=== PATIENT | female | born 1980 | race Caucasian/White ===

== ENCOUNTER → 2018-01-20 01:51 | Outpatient (CLI) | payer MEDICAID, SELFPAY ==
--- NOTE | 2018-01-20 13:00 | DI.RPTCT_ITS ---
SYMPTOM/DIAGNOSIS: CHRONIC SINUSITIS, J32.[address]: The examination was carried out according to the usual protocol without contrast enhancement. The paranasal sinuses are normal. The nasal cavity is intact. SUMMARY: There is no evidence of sinus disease.
== END ==
PROVIDERS: PCP General Practice; Visit Provider General Practice
DX: J32.9 Chronic sinusitis, unspecified (principal)
CPT/HCPCS: 70486

== ENCOUNTER 2018-11-01 10:03 | Emergency (ER) | payer MEDICAID, SELFPAY ==
[2018-11-01 10:07] VITALS: BP 120/90; PULSE 98; RESP 18; TEMP 36.8; O2SAT 97
--- NOTE | 2018-11-01 10:22 | W.ED.GENAD ---
Discharge Plan Disposition Patient Disposition: HOME Condition: Stable Discharge Details Chief Complaint: GenMedical Clinical Impression: Cervical myofascial strain Primary Care Provider: Balaji Sheets ED Provider: Noy Sotelo Home Meds and New Rx's Prescriptions: New cyclobenzaprine 10 mg tablet 10 mg PO TID PRN (Reason: muscle spasm) Qty: 10 RF: 0 Continued sertraline 100 mg tablet 200 mg PO DAILY RF: 0 ibuprofen 800 mg tablet 800 mg PO TID PRNQty: 90 RF: 0 acyclovir 200 mg capsule 200 mg PO Q4HR Qty: 25 RF: 4 insulin lispro [Humalog U-100 Insulin] 100 UNIT/ML solution 0 - 12 units SQ AC RF: 0 insulin glargine [Lantus Solostar U-100 Insulin] 300 UNITS/3 ML insulin pen 50 units SQ HS RF: 0 Discharge Instructions Instructions: Cervical Strain (ED) Additional Instructions: Drink plenty of fluids and get plenty of rest. Alternate ice and heat to the affected area several times daily for 20 minutes at a time. Alternate Tylenol and Motrin as needed and directed for pain. Take the Flexeril as needed and directed for muscle spasm. Follow-up with your primary care doctor next week for reevaluation. Return to the emergency department any worsening or new concerning symptoms such as increased pain, weakness, headache, fever or any other concerns. Stand Alone Forms: Work Release Discharge Data Discharge Physician: Noy Sotelo Medical Decision Making 37-year-old female with a history of diabetes, GERD, migraine, depression who presents with right-sided neck pain worse with movement for the past 2 days. No known injury. Also complained of mild sore throat and chills since yesterday. Denies any headache, vomiting, chest pain, shortness of breath, abdominal pain. Vitals normal on arrival. Afebrile. Patient appears nontoxic. Normal ENT exam. Lungs clear to auscultation. No meningeal signs. No focal deficits. Neurovascularly intact. She has tenderness to palpation of her right lateral cervical region without evidence of trauma or rash. No tenderness to palpation of left lateral neck. Shortly after evaluation, patient requests a work note for today and tomorrow. As patient has not taken any medication for pain thus far, will give a dose of ibuprofen here. test negative. Appears consistent with cervical strain/sprain. She has no fever, no nuchal rigidity, and does not appear consistent with meningitis. Patient instructed to alternate ice and heat, Tylenol Motrin and will send home with prescription for Flexeril She is instructed to follow-up with primary care doctor for reevaluation and return here if worse. HPI General Mode of arrival: ambulatory. Date/Time Provider Initiated Documentation: 11/01/18 10:06. Limitations to Documentation: no limitations. Information obtained by: patient. HPI Narrative: Pt is a 37yo F with a history of diabetes, GERD, migraine, depression who presents with right-sided neck pain for the past 2 days. Patient states she feels like she may have pulled a muscle was sleeping and the pain became worse throughout the day. States it hurts more when she turns her head to the right. She denies any known injury. She states now she feels like she is getting pain referred to the left side but states it is still worse on the right side. She denies any known fever and states she has been eating and drinking normally. She has not taken any medication for pain or used ice or heat. She also states since yesterday she has had some mild sore throat and chills but otherwise denies any headache, vomiting, chest pain, shortness of breath, abdominal pain, extremity weakness or numbness. Related Data Home Medications Medication Instructions Recorded Confirmed insulin glargine [Lantus Solostar 50 units SQ HS 05/12/15 04/01/18 U-100 Insulin] insulin lispro [Humalog U-100 0 - 12 units SQ AC 05/12/15 04/01/18 Insulin] ibuprofen 800 mg tablet 800 mg PO TID PRN #90 04/01/18 04/01/18 sertraline 100 mg tablet 200 mg PO DAILY tab 04/01/18 04/01/18 acyclovir 200 mg capsule 200 mg PO Q4HR #25 tab-cap 04/25/18 cyclobenzaprine 10 mg PO TID PRN #10 tab 11/01/18 Previous Rx's Medication Instructions Recorded acyclovir 200 mg capsule 200 mg PO Q4HR #25 tab-cap 04/25/18 cyclobenzaprine 10 mg PO TID PRN #10 tab 11/01/18 Allergies Allergy/AdvReac Type Severity Reaction Status Date / Time amoxicillin Allergy Mild Hives Unverified 04/01/18 13:28 General Stated Complaint: GenMedical RADHA: 4 Review of Systems Review of Systems All systems reviewed & are unremarkable except as noted in HPI and below Constitutional Reports as per HPI, Denies chills and Denies fever(s) Eyes Denies blurry vision ENT Denies dizziness, Reports neck pain, Reports sore throat and Denies throat swelling Cardiovascular Denies chest pain and Denies dyspnea Respiratory Denies cough and Denies dyspnea Gastrointestinal Denies abdominal pain, Denies diarrhea and Denies vomiting Genitourinary Denies hematuria and Denies dysuria Musculoskeletal Denies back pain, Reports neck pain and Denies numbness Integumentary/Breasts Denies lesions and Denies rash Neurologic Denies dizziness, Denies focal weakness and Denies numbness Allergic/Immunologic Denies throat swelling [facility] Medical History Depression (Chronic) Diabetes (Chronic) GERD (gastroesophageal reflux disease) (Chronic) Migraine (Chronic) Surgical History Appendectomy section Cholecystectomy Diagnostic Laproscopy Family History Father Hypertension Non-Hodgkin lymphoma in remission Social History Smoking/Tobacco Use Status: Never Alcohol Intake: current Alcohol Intake frequency: a few times a month Drug use: Never Substance use type: marijuana Adopted: No Household members: children What type of physical activity do you participate in: normal ROM and activity Do you feel safe at home: Yes Do you feel safe in your relationship?: Yes Exam Const General: cooperative and healthy appearing Orientation: alert and awake HENMT Head: normal to inspection Ears: hearing grossly normal bilaterally, external ears normal and TM's normal bilaterally General nose exam: external nose normal Face and sinus: normal facial exam Mouth: oral mucosae normal Teeth and gingiva: dentition normal Throat: posterior oropharynx normal Eyes General: appearance normal, both eyes and all related structures Eyelids: eyelids normal Pupils: PERRL EOM: EOM intact bilaterally Neck Neck: normal visual inspection, no meningeal signs, trachea midline, supple and No submandibular swelling Lymphatic: no lymphadenopathy noted Neck images: 1. Tenderness to palpation of right lateral neck, worse near base of neck. Increased pain with right head rotation and right side bending and flexion. No tenderness to palpation of left lateral neck. Chest Chest: normal inspection of the chest Resp Effort & Inspection: normal respiratory effort and able to speak in complete sentences Auscultation: clear to auscultation bilaterally Cardio Rate: regular rate Rhythm: regular rhythm GI Inspection: normal to inspection Palpation: soft, not firm, no guarding, no hepatosplenomegaly, no masses and nontender Auscultation: normal bowel sounds Skin General skin exam: no rashes or lesions noted Neuro General: alert and awake Cognition: normal cognition Speech: speech normal Gait: normal gait Motor: muscle tone normal throughout, strength 5/5 throughout and other (Normal motor function radial/median/ulnar nerve) Sensory Exam: no sensory deficits noted Extrem General: normal to inspection, full ROM, normal capillary refill and other (B/l radial pulses intact. ) Psych Appearance: grossly normal Mental Status: mental status grossly normal Speech and Movement: speech and movement normal Affect: normal affect Thought Process: normal Course Vital Signs Temperature 98.2 F 11/01/18 10:07 Pulse 98 H 11/01/18 10:07 Respiratory Rate 18 11/01/18 10:07 Blood Pressure 120/90 11/01/18 10:07 Pulse Oximetry 97 11/01/18 10:07 Temperature 98.2 F 11/01/18 10:07 Pulse 98 H 11/01/18 10:07 Respiratory Rate 18 11/01/18 10:07 Respiratory Effort 11/01/18 10:19 Respiratory Depth Normal 11/01/18 10:19 Respiratory Pattern Normal 11/01/18 10:19 Blood Pressure 120/90 11/01/18 10:07 Pulse Oximetry 97 11/01/18 10:07 Oxygen Delivery Method Room Air 11/01/18 10:07 Oxygen Flow Rate 0 11/01/18 10:07 Pain Level 7 11/01/18 10:07
[2018-11-01] MEDS: Ibuprofen 600 MG TAB PO (10:43)
--- NOTE | 2018-11-01 10:46 | NUR.NOTE ---
patient exmained by MD, patient medicated per MD order . Nursing Note:
== END 2018-11-01 10:49 | disposition home or self-care (01) ==
PROVIDERS: Emergency Provider Physician Assistant; PCP Nurse Practitioner Family
DX: S16.1XXA Strain of muscle, fascia and tendon at neck level, initial encounter (principal); E11.9 Type 2 diabetes mellitus without complications; Z79.4 Long term (current) use of insulin
CPT/HCPCS: 99283

== ENCOUNTER 2018-11-10 10:05 | Emergency (ER) | payer MEDICAID, SELFPAY ==
[2018-11-10 10:07] VITALS: BP 148/101; PULSE 97; RESP 20; TEMP 36.5; O2SAT 95
[2018-11-10 10:11] VITALS: RESP 20
--- NOTE | 2018-11-10 10:30 | W.ED.GENAD ---
Discharge Plan Disposition Patient Disposition: HOME Condition: Fair Discharge Details Chief Complaint: GenMedical Clinical Impression: Diabetes mellitus, Poorly controlled diabetes mellitus Primary Care Provider: Balaji Sheets ED Provider: Vale Bergman Home Meds and New Rx's Prescriptions: Continued sertraline 100 mg tablet 200 mg PO DAILY RF: 0 ibuprofen 800 mg tablet 800 mg PO TID PRNQty: 90 RF: 0 acyclovir 200 mg capsule 200 mg PO Q4HR Qty: 25 RF: 4 Humalog U-100 Insulin 100 UNIT/ML solution 0 - 12 units SQ AC RF: 0 Lantus Solostar U-100 Insulin 300 UNITS/3 ML insulin pen 60 units SQ HS RF: 0 cyclobenzaprine 10 mg tablet 10 mg PO TID PRN (Reason: muscle spasm) Qty: 10 RF: 0 Discharge Instructions Instructions: Diabetes Insipidus (ED) Additional Instructions: Encourage hydration with water. You need to take your medications as prescribed and monitor your glucose as is been advised by primary care physician. Is elevation in your sugar is possibly what is driving your fatigue and feeling generally unwell. Please contact your primary care provider today to schedule follow-up within the next week for reevaluation. If you develop fevers, increased pain, inability stay hydrated or other new/worsening symptoms please seek care urgently once again. Tick and Lyme panel as well as A1C are still pending. Stand Alone Forms: Work Release Referrals: Balaji Sheets, HEAD NECK SURGEON [Primary Care Provider] - Discharge Data Discharge Date/Time-TO BE ENTERED AT DEPARTURE: 11/10/18 12:53 Medical Decision Making Patient presents with c/c generalized fatigue, myalgias and arthralgias. States that these come and go. no focal area of discomfort at this time. She is afebrile, hypertensive at 148/101. States she has been having increased thrist. Endorsing diffuse abdominal discomfort, no focal areas of tenderness. No findings to suggest surgical abdomen. She appears chronically ill with skin changes concerning for poorly controlled diabetes. Patient reports her glucose is typically around 200. Patient lives in [facility], also concidered tick born illness, will obtain these labs. W Review of labs concerning for glucose of 430. Patient has been elevated like this historically. I had discussed her diabetic control patient initially had been reporting that she was taking medications as prescribed. However, she is now reporting that she while she does take the Lantus at night, she does not use her Humalog as prescribed. States that she has bad diet I will not elaborate on this. Does not check her glucose on a daily basis. Had been taking her glucose is around 200. Advised that this is likely what is the source of her general malaise and feeling unwell. Patient will be given 10 units of NovoLog. Will contact primary care to establish follow-up. Have requested A1c which she will follow-up with primary care. Was unable to reach PCP. Plan for patient to call and f/u as soon as possible. We discussed her diabetes at length and reinforced the primary cares plan. Will call with any positive tick results. Given strict return precautions. All questions and concerns wereaddressed, she is in agreement wiht this plan. HPI General Mode of arrival: ambulatory. Date/Time Provider Initiated Documentation: 11/10/18 10:10. Limitations to Documentation: no limitations. Information obtained by: patient, family (Accompanied by patria?) and RN notes reviewed. HPI Narrative: Patient 37-year-old female, accompanied by her fianc?, with generalized vague complaints. She was here last week with a right cervical strain. Since then his pain has been improving although still mildly present. However, she is now endorsing general body aches. Reports that she had right hip pain for 20 minutes last night prior to bed which is very concerning patient. This is insidious onset. Did not take any analgesics or trying any attempts at resolving this. Denies any fevers but does endorse chills. She is having diffuse abdominal pain. No nausea or vomiting. No change in bowel habits. No change in urinary habits. No recent travel. No known exposure to ticks. Has not noted any rashes. Endorses generalized fatigue but no localized weakness. Related Data Home Medications Medication Instructions Recorded Confirmed Humalog U-100 Insulin 0 - 12 units SQ AC 05/12/15 11/10/18 Lantus Solostar U-100 Insulin 60 units SQ HS 05/12/15 11/10/18 ibuprofen 800 mg tablet 800 mg PO TID PRN #90 04/01/18 11/10/18 sertraline 100 mg tablet 200 mg PO DAILY tab 04/01/18 11/10/18 acyclovir 200 mg capsule 200 mg PO Q4HR #25 tab-cap 04/25/18 11/10/18 cyclobenzaprine 10 mg PO TID PRN #10 tab 11/01/18 11/10/18 Previous Rx's Medication Instructions Recorded acyclovir 200 mg capsule 200 mg PO Q4HR #25 tab-cap 04/25/18 cyclobenzaprine 10 mg PO TID PRN #10 tab 11/01/18 Allergies Allergy/AdvReac Type Severity Reaction Status Date / Time amoxicillin Allergy Mild Hives Unverified 11/10/18 10:10 General Stated Complaint: GenMedical RADHA: 4 Review of Systems Constitutional Reports as per HPI, Reports chills, Reports fatigue, Denies fever(s), Denies headache(s) and Denies poor appetite ENT Denies headache(s) Cardiovascular Reports as per HPI, Denies chest pain and Denies dyspnea Respiratory Reports as per HPI, Denies cough and Denies dyspnea Gastrointestinal Reports as per HPI, Reports abdominal pain, Denies melena, Denies change in bowel habits, Denies diarrhea, Denies nausea, Denies vomiting and Denies hematemesis Musculoskeletal Reports as per HPI, Denies back pain, Reports myalgias, Reports arthralgias, Denies joint swelling, Denies limited range of motion, Denies muscle cramps, Denies numbness, Denies radiating pain into limb and Denies stiffness Integumentary/Breasts Reports as per HPI and Denies rash Neurologic Reports as per HPI, Denies headache(s) and Denies numbness Endocrine Reports fatigue [facility] Medical History Depression (Chronic) Diabetes (Chronic) GERD (gastroesophageal reflux disease) (Chronic) Migraine (Chronic) Surgical History Appendectomy section Cholecystectomy Diagnostic Laproscopy Social History Smoking/Tobacco Use Status: Never Alcohol Intake: current Alcohol Intake frequency: a few times a month Drug use: Occasionally Substance use type: marijuana Adopted: No Household members: children What type of physical activity do you participate in: normal ROM and activity Do you feel safe at home: Yes Do you feel safe in your relationship?: Yes Exam Const General: cooperative, healthy appearing, comfortable, no acute distress and well developed Nutritional Appearance: well nourished and overweight Orientation: alert and awake [facility] Head: normal to inspection Mouth: mucous membranes dry (patient appears dry) Eyes General: appearance normal, both eyes and all related structures Visual Chang: normal visual hcang by confrontation Alignment and Position: alignment normal Periorbital: periorbital findings normal Conjunctivae: conjunctivae normal Sclera: sclerae normal Pupils: PERRL EOM: EOM intact bilaterally Neck Neck: normal visual inspection, full ROM, no lymphadenopathy and no meningeal signs Resp Effort & Inspection: normal respiratory effort, able to speak in complete sentences and no respiratory distress Auscultation: clear to auscultation bilaterally, no rales, no rhonchi and no wheezes Cardio Rate: regular rate Rhythm: regular rhythm Heart Sounds: S1 normal and S2 normal GI Inspection: obesity Palpation: soft, no hepatosplenomegaly, not firm, no guarding and nontender Auscultation: normal bowel sounds Back/Spine/Pelvis Back: no CVA tenderness Skin General skin exam: other (patient has velvety skin that is dry and darkened, acanthosis nigricans) Neuro General: alert and awake Cognition: normal cognition Speech: speech normal Gait: normal gait Extrem General: normal to inspection, full ROM, normal capillary refill, no pedal edema and no calf tenderness Psych Appearance: grossly normal and well kempt Mental Status: mental status grossly normal Speech and Movement: speech and movement normal Course Vital Signs Temperature 36.5 C 11/10/18 10:07 Pulse 97 H 11/10/18 10:07 Respiratory Rate 20 11/10/18 10:07 Blood Pressure 148/101 H 11/10/18 10:07 Pulse Oximetry 95 11/10/18 10:07 Temperature 36.5 C 11/10/18 10:07 Temperature Source Temporal Artery Scan 11/10/18 10:07 Pulse 97 H 11/10/18 10:07 Respiratory Rate 20 11/10/18 10:11 Respiratory Effort Non-Labored 11/10/18 10:11 Respiratory Depth Normal 11/10/18 10:11 Respiratory Pattern Normal 11/10/18 10:11 Blood Pressure 148/101 H 11/10/18 10:07 Blood Pressure Position Sitting 11/10/18 10:07 Pulse Oximetry 95 11/10/18 10:07 Oxygen Delivery Method Room Air 11/10/18 10:07 Oxygen Flow Rate 0 11/10/18 10:07 Pain Level 7 11/10/18 10:07
--- NOTE | 2018-11-10 10:36 | ED.GENADUL_ITS ---
Discharge Plan Disposition Patient Disposition: HOME Condition: Fair Discharge Details Chief Complaint: GenMedical Clinical Impression: Diabetes mellitus, Poorly controlled diabetes mellitus Primary Care Provider: Balaji Sheets ED Provider: Vale Bergman Home Meds and New Rx's Prescriptions: Continued sertraline 100 mg tablet 200 mg PO DAILY RF: 0 ibuprofen 800 mg tablet 800 mg PO TID PRNQty: 90 RF: 0 acyclovir 200 mg capsule 200 mg PO Q4HR Qty: 25 RF: 4 Humalog U-100 Insulin 100 UNIT/ML solution 0 - 12 units SQ AC RF: 0 Lantus Solostar U-100 Insulin 300 UNITS/3 ML insulin pen 60 units SQ HS RF: 0 cyclobenzaprine 10 mg tablet 10 mg PO TID PRN (Reason: muscle spasm) Qty: 10 RF: 0 Discharge Instructions Instructions: Diabetes Insipidus (ED) Additional Instructions: Encourage hydration with water. You need to take your medications as prescribed and monitor your glucose as is been advised by primary care physician. Is elevation in your sugar is possibly what is driving your fatigue and feeling generally unwell. Please contact your primary care provider today to schedule follow-up within the next week for reevaluation. If you develop fevers, increased pain, inability stay hydrated or other new/worsening symptoms please seek care urgently once again. Tick and Lyme panel as well as A1C are still pending. Stand Alone Forms: Work Release Referrals: Balaji Sheets, PERSONNEL OFFICER [Primary Care Provider] - Discharge Data Discharge Date/Time-TO BE ENTERED AT DEPARTURE: 11/10/18 12:53 Medical Decision Making Patient presents with c/c generalized fatigue, myalgias and arthralgias. States that these come and go. no focal area of discomfort at this time. She is afebrile, hypertensive at 148/101. States she has been having increased thrist. Endorsing diffuse abdominal discomfort, no focal areas of tenderness. No findings to suggest surgical abdomen. She appears chronically ill with skin changes concerning for poorly controlled diabetes. Patient reports her glucose is typically around 200. Patient lives in [facility], also concidered tick born illness, will obtain these labs. W Review of labs concerning for glucose of 430. Patient has been elevated like this historically. I had discussed her diabetic control patient initially had been reporting that she was taking medications as prescribed. However, she is now reporting that she while she does take the Lantus at night, she does not use her Humalog as prescribed. States that she has bad diet I will not elaborate on this. Does not check her glucose on a daily basis. Had been taking her glucose is around 200. Advised that this is likely what is the source of her general malaise and feeling unwell. Patient will be given 10 units of NovoLog. Will contact primary care to establish follow-up. Have requested A1c which she will follow-up with primary care. Was unable to reach PCP. Plan for patient to call and f/u as soon as possible. We discussed her diabetes at length and reinforced the primary cares plan. Will call with any positive tick results. Given strict return precautions. All questions and concerns wereaddressed, she is in agreement wiht this plan. HPI General Mode of arrival: ambulatory . Date/Time Provider Initiated Documentation: 11/10/18 10:10 . Limitations to Documentation: no limitations . Information obtained by: patient, family (Accompanied by patria?) and RN notes reviewed . HPI Narrative: Patient 37-year-old female, accompanied by her fianc?, with generalized vague complaints. She was here last week with a right cervical strain. Since then his pain has been improving although still mildly present. However, she is now endorsing general body aches. Reports that she had right hip pain for 20 minutes last night prior to bed which is very concerning patient. This is insidious onset. Did not take any analgesics or trying any attempts at resolving this. Denies any fevers but does endorse chills. She is having diffuse abdominal pain. No nausea or vomiting. No change in bowel habits. No change in urinary habits. No recent travel. No kno wn exposure to ticks. Has not noted any rashes. Endorses generalized fatigue but no localized weakness. Related Data Home Medications Medication Instructions Recorded Confirmed Humalog U-100 Insulin 0 - 12 units SQ AC 05/12/15 11/10/18 Lantus Solostar U-100 Insulin 60 units SQ HS 05/12/15 11/10/18 ibuprofen 800 mg tablet 800 mg PO TID PRN #90 04/01/18 11/10/18 sertraline 100 mg tablet 200 mg PO DAILY tab 04/01/18 11/10/18 acyclovir 200 mg capsule 200 mg PO Q4HR #25 tab-cap 04/25/18 11/10/18 cyclobenzaprine 10 mg PO TID PRN #10 tab 11/01/18 11/10/18 Previous Rx's Medication Instructions Recorded acyclovir 200 mg capsule 200 mg PO Q4HR #25 tab-cap 04/25/18 cyclobenzaprine 10 mg PO TID PRN #10 tab 11/01/18 Allergies Allergy/AdvReac Type Severity Reaction Status Date / Time amoxicillin Allergy Mild Hives Unverified 11/10/18 10:10 General Stated Complaint: GenMedical RADHA: 4 Review of Systems Constitutional Reports as per HPI, Reports chills, Reports fatigue, Denies fever(s), Denies headache(s) and Denies poor appetite ENT Denies headache(s) Cardiovascular Reports as per HPI, Denies chest pain and Denies dyspnea Respiratory Reports as per HPI, Denies cough and Denies dyspnea Gastrointestinal Reports as per HPI, Reports abdominal pain, Denies melena, Denies change in bowel habits, Denies diarrhea, Denies nausea, Denies vomiting and Denies hematemesis Musculoskeletal Reports as per HPI, Denies back pain, Reports myalgias, Reports arthralgias, Denies joint swelling, Denies limited range of motion, Denies muscle cramps, Denies numbness, Denies radiating pain into limb and Denies stiffness Integumentary/Breasts Reports as per HPI and Denies rash Neurologic Reports as per HPI, Denies headache(s) and Denies numbness Endocrine Reports fatigue [facility] Medical History Depression (Chronic) Diabetes (Chronic) GERD (gastroesophageal reflux disease) (Chronic) Migraine (Chronic) Surgical History Appendectomy section Cholecystectomy Diagnostic Laproscopy Social History Smoking/Tobacco Use Status: Never Alcohol Intake: current Alcohol Intake frequency: a few times a month Drug use: Occasionally Substance use type: marijuana Adopted: No Household members: children What type of physical activity do you participate in: normal ROM and activity Do you feel safe at home: Yes Do you feel safe in your relationship?: Yes Exam Const General: cooperative, healthy appearing, comfortable, no acute distress and well developed Nutritional Appearance: well nourished and overweight Orientation: alert and awake [facility] Head: normal to inspection Mouth: mucous membranes dry (patient appears dry) Eyes General: appearance normal, both eyes and all related structures Visual Chang: normal visual chang by confrontation Alignment and Position: alignment normal Periorbital: periorbital findings normal Conjunctivae: conjunctivae normal Sclera: sclerae normal Pupils: PERRL EOM: EOM intact bilaterally Neck Neck: normal visual inspection, full ROM, no lymphadenopathy and no meningeal signs Resp Effort & Inspection: normal respiratory effort, able to speak in complete sentences and no respiratory distress Auscultation: clear to auscultation bilaterally, no rales, no rhonchi and no wheezes Cardio Rate: regular rate Rhythm: regular rhythm Heart Sounds: S1 normal and S2 normal GI Inspection: obesity Palpation: soft, no hepatosplenomegaly, not firm, no guarding and nontender Auscultation: normal bowel sounds Back/Spine/Pelvis Back: no CVA tenderness Skin General skin exam: other (patient has velvety skin that is dry and darkened, acanthosis nigricans) Neuro General: alert and awake Cognition: normal cognition Speech: speech normal Gait: normal gait Extrem General: normal to inspection, full ROM, normal capillary refill, no pedal edema and no calf tenderness Psych Appearance: grossly normal and well kempt Mental Status: mental status grossly normal Speech and Movement: speech and movement normal Course Vital Signs Temperature 36.5 C 11/10/18 10:07 Pulse 97 H 11/10/18 10:07 Respiratory Rate 20 11/10/18 10:07 Blood Pressure 148/101 H 11/10/18 10:07 Pulse Oximetry 95 11/10/18 10:07 Temperature 36.5 C 11/10/18 10:07 Temperature Source Temporal Artery Scan 11/10/18 10:07 Pulse 97 H 11/10/18 10:07 Respiratory Rate 20 11/10/18 10:11 Respiratory Effort Non-Labored 11/10/18 10:11 Respiratory Depth Normal 11/10/18 10:11 Respiratory Pattern Normal 11/10/18 10:11 Blood Pressure 148/101 H 11/10/18 10:07 Blood Pressure Position Sitting 11/10/18 10:07 Pulse Oximetry 95 11/10/18 10:07 Oxygen Delivery Method Room Air 05/30/19 10:07 Oxygen Flow Rate 0 11/10/18 10:07 Pain Level 7 11/10/18 10:07
[2018-11-10 11:45] LABS: Abs Immature Grans 0.01 k/cumm (0.0-0.09); Absolute Basophil Count 0.02 k/cumm (0.0-0.2); Absolute Eosinophil Count 0.06 k/cumm (0.0-0.7); Absolute Lymphocyte Count 2.02 k/cumm (1.2-3.4); Absolute Monocyte Count 0.41 k/cumm (0.11-0.7); Absolute Neutrophil Count 3.58 k/cumm (1.2-6.7); Basophils % 0.3; HCT 43.3 % (36.0-46.0); HGB 15.2 g/dL (12.0-15.5); Immature Grans % 0.2; Lymphocytes % 33.1; Mean Corp. HGB Concentration 35.1 g/dL (32.0-36.0); Mean Corpuscular Hemoglobin 28.4 pg (27.0-33.0); Mean Corpuscular Volume 80.8 fL (80-95); Mean Platelet Volume 11.2 fL (8.0-11.0); Monocytes % 6.7; Neutrophils % 58.7; Platelet Count 168 x1000/uL (130-400); RBC 5.36 m/cumm (4.00-5.20); RBC Distribution Width 12.6 % (11.7-14.6)
[2018-11-10 12:10] LABS: ALT 28 U/L (12-78); AST 13 U/L (15-37); Albumin 3.3 g/dL (3.4-5.0); Alkaline Phosphatase 123 U/L (46-116); Anion Gap 8.5 mmol/L (3-11); BUN 8 mg/dL (7-18); Bilirubin, Total 0.6 mg/dL (0.2-1.0); CO2 26.5 mmol/L (21.0-32.0); CREATININE 0.84 mg/dL (0.55-1.02); Calcium 8.8 mg/dL (8.5-10.1); Chloride 98 mmol/L (98-107); Glucose 430 mg/dL (70-100); Magnesium 1.7 mg/dL (1.8-2.4); Potassium 4.1 mmol/L (3.5-5.1); Sodium 133 mmol/L (136-145); TSH (W/Ref FT4) 0.62 uIU/mL (0.358-3.74)
[2018-11-10 12:12] LABS: Troponin I < 0.02 ng/mL (0.00-0.06)
[2018-11-10 12:36] LABS: Hemoglobin A1C 11.3 % (4.5-6.2)
[2018-11-10] MEDS: Insulin Aspart 100 UNITS/ML UNIT 10 UNITS SC (12:36)
[2018-11-10 12:49] VITALS: BP 148/101; PULSE 97; RESP 20; TEMP 36.5; O2SAT 95
[2018-11-11 12:04] LABS: Lyme Ab w Rflx to Lyme Confirm Negative
[2018-11-12 16:40] LABS: Anaplasma phagocytophilum Negative (Negative); B. miyamotoi PCR Negative (Negative); Babesia divergens/MO-1 Negative (Negative); Babesia duncani Negative (Negative); Babesia microti Negative (Negative); Ehrlichia chaffeensis Negative (Negative); Ehrlichia ewingii/canis Negative (Negative); Ehrlichia muris eauclairensis Negative (Negative)
== END 2018-11-10 12:53 | disposition home or self-care (01) ==
PROVIDERS: Emergency Provider Physician Assistant; PCP Nurse Practitioner Family
DX: E11.9 Type 2 diabetes mellitus without complications (principal); Z79.4 Long term (current) use of insulin
CPT/HCPCS: 36415; 80053; 96372; 99284; 83036; 83735; 84443; 84484; 85025; 86618; 87798; J1815

== ENCOUNTER 2018-11-28 12:41 | Emergency (ER) | payer MEDICAID, SELFPAY ==
[2018-11-28 12:48] VITALS: BP 132/74; PULSE 79; RESP 16; TEMP 36.9; O2SAT 100
--- NOTE | 2018-11-28 13:01 | DI.CT_ITS ---
SYMPTOM/DIAGNOSIS: LT SIDED WEAKNESS, HEADACHE, DIZZINESS NONCONTRAST HEAD CT: Comparison is made with 02/09/16. No intracranial hemorrhage, mass or infarct is seen. The ventricles are normal in size. There is no evidence of skull fracture or sinus opacification. IMPRESSION: Negative head CT.
--- NOTE | 2018-11-28 13:13 | NUR.NOTE ---
IV PLACED LABS DRAWN URINE SAMPLE OBTAINED PT AMBULATORY TO BATHROOM STEADY Nursing Note:
[2018-11-28 13:18] LABS: HCT 39.8 % (36.0-46.0); HGB 13.7 g/dL (12.0-15.5); Lymphocytes % 27.7; Mean Corp. HGB Concentration 34.4 g/dL (32.0-36.0); Mean Corpuscular Hemoglobin 28.5 pg (27.0-33.0); Mean Corpuscular Volume 82.9 fL (80-95); Monocytes % 4.8; Neutrophils % 65.6; Platelet Count 189 x1000/uL (130-400); RBC Distribution Width 12.8 % (11.7-14.6); White Blood Cell Count 7.07 k/cumm (4.4-10.8)
[2018-11-28 13:19] LABS: Abs Immature Grans 0.05 k/cumm (0.0-0.09); Absolute Basophil Count 0.01 k/cumm (0.0-0.2); Absolute Eosinophil Count 0.08 k/cumm (0.0-0.7); Absolute Lymphocyte Count 1.96 k/cumm (1.2-3.4); Absolute Monocyte Count 0.34 k/cumm (0.11-0.7); Absolute Neutrophil Count 4.63 k/cumm (1.2-6.7); Basophils % 0.1; Eosinophils % 1.1; Immature Grans % 0.7
--- NOTE | 2018-11-28 13:21 | NUR.NOTE ---
FINGER STICK OBTAINED FOUND TO BE 373 Nursing Note:
[2018-11-28 13:23] LABS: Bilirubin Negative (Negative); Blood Negative (Negative); Clarity Clear; Glucose 500 mg/dL (Negative); Ketones Negative (Negative); Leukocyte Esterase Negative (Negative); Nitrite Negative (Negative); Specific Gravity 1.015 (1.005-1.025); Urobilinogen 0.2 EU/dL (Up TO 0.2); pH 5.5 (5-8)
[2018-11-28 13:40] LABS: ALT 26 U/L (12-78); AST 11 U/L (15-37); Albumin 2.9 g/dL (3.4-5.0); Alkaline Phosphatase 116 U/L (46-116); Anion Gap 12.5 mmol/L (3-11); BUN 8 mg/dL (7-18); Bilirubin, Total 0.4 mg/dL (0.2-1.0); CO2 23.5 mmol/L (21.0-32.0); CREATININE 0.97 mg/dL (0.55-1.02); Calcium 8.4 mg/dL (8.5-10.1); Chloride 103 mmol/L (98-107); Glucose 392 mg/dL (70-100); Magnesium 1.6 mg/dL (1.8-2.4); Potassium 3.8 mmol/L (3.5-5.1); Sodium 139 mmol/L (136-145); Total Protein 6.4 g/dL (6.4-8.2); Troponin I 0.02 ng/mL (0.00-0.06)
--- NOTE | 2018-11-28 13:41 | W.ED.GENAD ---
Discharge Plan Disposition Patient Disposition: HOME Condition: Stable Discharge Details Chief Complaint: GenMedical Clinical Impression: Diabetes mellitus Primary Care Provider: Balaji Sheets ED Provider: Vale Bergman Home Meds and New Rx's Prescriptions: Continued sertraline 100 mg tablet 200 mg PO DAILY RF: 0 ibuprofen 800 mg tablet 800 mg PO TID PRNQty: 90 RF: 0 acyclovir 200 mg capsule 200 mg PO Q4HR Qty: 25 RF: 4 Humalog U-100 Insulin 100 UNIT/ML solution 0 - 12 units SQ AC RF: 0 Lantus Solostar U-100 Insulin 300 UNITS/3 ML insulin pen 60 units SQ HS RF: 0 cyclobenzaprine 10 mg tablet 10 mg PO TID PRN (Reason: muscle spasm) Qty: 10 RF: 0 Discharge Instructions Instructions: Diabetic Retinopathy (ED), Diabetic Peripheral Neuropathy (ED) Additional Instructions: Encourage hydration. You need to follow the diabetic diet and diabetic medications as directed by your primary care as well as a medical educator. Please find your glucometer and check this as advised. Please follow-up with primary care next week for reevaluation. Monitor your symptoms are likely associated with your diabetes being so poorly controlled. This will continue to cause damage to your eyes, nerves, kidneys. If you develop fever/chills, inability stay hydrated or the new/worsening symptoms please seek care urgently once again Stand Alone Forms: Work Release Referrals: Balaji Sheets, PILOT INSTRUCTOR [Primary Care Provider] - Medical Decision Making Patient is a 38 year old female, hx of poorly controlled diabetes, presenting with persistant malaise, fatigue and new onset left sided heaviness. Left sided symptoms began while laying in bed last night at midnight. Patient was seen by myself on 11/10/18 with similar complaints, workup significant for glucose >400. This is typical for the patient. Thyroid, tick and lyme panel normal. she was subsequently evaluated by her PCP who also reinforced that she needs better diabetic management. Was evaluated by diabetic counselor. Patient continues to be noncompliant. Reprots she cut chips out of her diet, otherwise remains unchanged. She has not begun to use her glucometer, is only occasionally using her sliding scale. No recent trauma. No weakness, no change in bowel/bladder habits, no change in ambulator status or focal weakness. On exam, she appears obese. skin changes consistent with her hx of poorly controlled dm. Neuro exam is intact, no deficit noted. Consulted with Dr. Stark regarding the patients left sided heaviness. Advised that, without neurologic deficit, she would no persue further imaging such as CTA or MRI. Advised that this is likely from her elevated glucose, even if this is chronic. She is questioning if this could be associated with migraine vs. social as well but feels that htis is likely DM related. Will consult with PCP. Spoke with Patty Sultana NP, patients PCP. She agrees that her sxs are likely associated iwth her DM. I reinforced their recommendations with the patient. I offered to help her get a new glucometer as she reports, I have two but cant find them but she declines, offered meeting/event planner or diabetic counselor while here and she declines this as well. Her mag was slightly low at 1.6, was given replacement. She will f/u wtih PCP. We discussed, in depth, the fci affects of poorly controlled diabetes. Encouraged close f/u . All of her questions and concerns were addressed, she is in agreement with this plan. Work note given at patient request. HPI General Mode of arrival: ambulatory. Date/Time Provider Initiated Documentation: 11/28/18 13:01. Limitations to Documentation: no limitations. Information obtained by: patient and RN notes reviewed. History of Present Illness 38 year old F presents to the emergency department with the chief complaint of fatigue, left sided heaviness, described as moderate, Quality is described as aching, Patient started experiencing this hour(s) (13) and it has been constant. No relieving factors improve symptom(s), No exacerbating factors reported . Patient notes headaches (endorses mild DAIGLE), shortness of breath and weakness (generalized weakness and fatigue with acute left sided weakness); denies chest pain, cough, fever/chills, loss of appetite, nausea/vomiting and rash. Patient did receive the following treatments prior to arrival, none Related Data Home Medications Medication Instructions Recorded Confirmed Humalog U-100 Insulin 0 - 12 units SQ AC 05/12/15 11/10/18 Lantus Solostar U-100 Insulin 60 units SQ HS 05/12/15 11/10/18 ibuprofen 800 mg tablet 800 mg PO TID PRN #90 04/01/18 11/10/18 sertraline 100 mg tablet 200 mg PO DAILY tab 04/01/18 11/10/18 acyclovir 200 mg capsule 200 mg PO Q4HR #25 tab-cap 04/25/18 11/10/18 cyclobenzaprine 10 mg PO TID PRN #10 tab 11/01/18 11/10/18 Previous Rx's Medication Instructions Recorded acyclovir 200 mg capsule 200 mg PO Q4HR #25 tab-cap 04/25/18 cyclobenzaprine 10 mg PO TID PRN #10 tab 11/01/18 Allergies Allergy/AdvReac Type Severity Reaction Status Date / Time amoxicillin Allergy Mild Hives Unverified 11/10/18 10:10 General Stated Complaint: GenMedical RADHA: 2 Review of Systems Constitutional Reports as per HPI, Denies chills, Denies fever(s), Reports headache(s) (endorses mild DAIGLE, hx of migraines), Denies lethargy, Denies poor appetite and Reports weakness (feels left side is heavy) Eyes Reports change in vision (reports that they have been becoming more blurred over the past few months) and Denies loss of vision ENT Denies vertigo, Denies dizziness and Reports headache(s) (endorses mild DAIGLE, hx of migraines) Cardiovascular Reports as per HPI, Denies dyspnea and Denies dyspnea on exertion Respiratory Reports as per HPI, Denies chest congestion, Denies cough, Denies pain on inspiration, Denies pain with cough, Denies dyspnea, Denies dyspnea on exertion and Denies wheezing Gastrointestinal Reports as per HPI, Denies abdominal pain, Denies diarrhea, Denies nausea and Denies vomiting Genitourinary Reports system reviewed and no additional complaints, except as docu (denies chagne in urinary habits, has IUD in place) Musculoskeletal Reports as per HPI, Denies abnormal gait, Denies back pain, Denies numbness and Reports tingling (left side) Integumentary/Breasts Reports as per HPI and Denies rash Neurologic Reports as per HPI, Denies abnormal gait, Denies vertigo, Denies dizziness, Reports headache(s) (endorses mild DAIGLE, hx of migraines), Denies focal weakness, Denies loss of vision, Denies numbness, Denies radicular pain, Denies convulsions, Reports tingling (left side), Denies paresthesias and Reports weakness (feels left side is heavy) Allergic/Immunologic Denies wheezing [facility] Social History Smoking/Tobacco Use Status: Never Alcohol Intake: current Alcohol Intake frequency: a few times a month Drug use: Occasionally Substance use type: marijuana Adopted: No Household members: children What type of physical activity do you participate in: normal ROM and activity Do you feel safe at home: Yes Do you feel safe in your relationship?: Yes Exam Const General: cooperative, healthy appearing, comfortable, no acute distress and well developed Nutritional Appearance: well nourished and overweight Orientation: alert, awake and oriented x3 HENMT Head: normal to inspection Ears: hearing grossly normal bilaterally Mouth: moist mucous membranes Neck Neck: not normal to visual inspection (Acanthosis nigricans ), full ROM, no lymphadenopathy and no meningeal signs Chest Chest: normal inspection of the chest, normal palpation of entire chest wall and no crepitus Resp Effort & Inspection: normal respiratory effort, able to speak in complete sentences and no respiratory distress Auscultation: clear to auscultation bilaterally, no rales, no rhonchi and no wheezes Cardio Rate: regular rate Rhythm: regular rhythm Heart Sounds: S1 normal and S2 normal GI Inspection: normal to inspection, no edema and non-distended Palpation: soft, no hepatosplenomegaly, not firm, no guarding, not rigid and nontender Auscultation: normal bowel sounds Back/Spine/Pelvis Back: no CVA tenderness Thoracic/Lumbar Spine: thoracic and lumbar spine normal to inspection Skin General skin exam: no rashes or lesions noted Trauma: no lacerations or abrasions Neuro General: alert, awake, oriented x3, gait normal, tone normal, moves all extremities, normal light touch, pain and propioception, no meningeal signs and no focal motor deficits Cranial Nerves: CN's II-XI intact bilaterally Cognition: normal cognition Speech: speech normal Gait: normal gait Motor: muscle tone normal throughout, strength 5/5 throughout, no pronator drift, no movement abnormalities noted and no fasciculations Sensory Exam: no sensory deficits noted (sharp/dull testing normal in all extremities) DTR's: Rt Triceps: 2+, Lt Triceps: 2+, Rt Biceps: 2+, Lt Biceps: 2+, Rt Brachioradialis: 2+, Lt Brachioradialis: 2+, Rt Patellar: 2+, Lt Patellar: 2+, Rt Ankle: 2+ and Lt Ankle: 2+ Plantar Reflexes: Equivocal: bilateral Coordination: [id number] test normal and [id number] test normal Extrem General: normal to inspection, normal capillary refill, no pedal edema, no calf tenderness and normal gait Psych Appearance: grossly normal and well kempt Mental Status: mental status grossly normal Speech and Movement: speech and movement normal Course Vital Signs Temperature 36.9 C 11/28/18 12:48 Pulse 79 11/28/18 12:48 Respiratory Rate 16 11/28/18 12:48 Blood Pressure 132/74 11/28/18 12:48 Pulse Oximetry 100 11/28/18 12:48 Temperature 36.9 C 11/28/18 12:48 Pulse 79 11/28/18 12:48 Respiratory Rate 16 11/28/18 12:48 Respiratory Effort Non-Labored 11/28/18 13:02 Respiratory Depth Normal 11/28/18 13:02 Respiratory Pattern Normal 11/28/18 13:02 Blood Pressure 132/74 11/28/18 12:48 Blood Pressure Position Supine 11/28/18 12:48 Pulse Oximetry 100 11/28/18 12:48 Oxygen Delivery Method Room Air 11/28/18 12:48 Oxygen Flow Rate 0 11/28/18 12:48 Lab/Test Results Lab/Test Results: Laboratory Tests Range/Units 11/28/18 11/28/18 11/28/18 13:07 13:07 13:08 WBC (4.4-10.8) k/cumm 7.07 RBC (4.00-5.20) m/cumm 4.80 Hgb (12.0-15.5) g/dL 13.7 Hct (36.0-46.0) % 39.8 MCV (80-95) fL 82.9 MCH (27.0-33.0) pg 28.5 MCHC (32.0-36.0) g/dL 34.4 RDW (11.7-14.6) % 12.8 Plt Count (130-400) x1000/uL 189 MPV (8.0-11.0) fL 11.0 Immature Gran % 0.7 Neutrophils % 65.6 Lymphocytes % 27.7 Monocytes % 4.8 Eosinophils % 1.1 Basophils % 0.1 Absolute Neutrophils (1.2-6.7) k/cumm 4.63 Absolute Lymphocytes (1.2-3.4) k/cumm 1.96 Absolute Monocytes (0.11-0.7) k/cumm 0.34 Absolute Eosinophils (0.0-0.7) k/cumm 0.08 Absolute Basophils (0.0-0.2) k/cumm 0.01 Sodium (136-145) mmol/L 139 Potassium (3.5-5.1) mmol/L 3.8 Chloride (98-107) mmol/L 103 Carbon Dioxide (21.0-32.0) mmol/L 23.5 Anion Gap (3-11) mmol/L 12.5 H BUN (7-18) mg/dL 8 Creatinine (0.55-1.02) mg/dL 0.97 Estimated GFR/1.73 m2 (mL/min/1.73m2) >= 60.00 Glucose (70-100) mg/dL 392 H Calcium (8.5-10.1) mg/dL 8.4 L Magnesium (1.8-2.4) mg/dL 1.6 L Total Bilirubin (0.2-1.0) mg/dL 0.4 AST (15-37) U/L 11 L ALT (12-78) U/L 26 Alkaline Phosphatase (46-116) U/L 116 Troponin I (0.00-0.06) ng/mL 0.02 Total Protein (6.4-8.2) g/dL 6.4 Albumin (3.4-5.0) g/dL 2.9 L Urine Color (Yellow) Yellow Urine Clarity Clear Urine pH (5-8) 5.5 Ur Specific Anderson (1.005-1.025) 1.015 Urine Protein (Negative) mg/dL Negative Urine Ketones (Negative) mg/dL Negative Urine Blood (Negative) Negative Urine Nitrite (Negative) Negative Urine Bilirubin (Negative) Negative Urine Urobilinogen (Up TO 0.2) EU/dL 0.2 Ur Leukocyte Esterase (Negative) Negative Urine Glucose (Negative) mg/dL 500 H
--- NOTE | 2018-11-28 13:47 | NUR.NOTE ---
pt taken to ct by contact lens blocker and cutter Nursing Note:
--- NOTE | 2018-11-28 13:54 | NUR.NOTE ---
PT BACK IN ROOM FROM CT Nursing Note:
[2018-11-28 14:03] LABS: PTT Activated 21.6 sec (21.0-31.4); Prothrombin Time 9.6 sec (9.3-11.0)
[2018-11-28] MEDS: Magnesium Oxide 400 MG TAB PO (14:39)
[2018-11-28] MEDS: Normal Saline Flush 10 ML SYR IVP (14:40)
[2018-11-28] MEDS: Normal Saline 1,000 ML 150 ML IV (14:40)
--- NOTE | 2018-11-28 14:40 | NUR.NOTE ---
pt medicated as per mdo ivf infusing pt tolorating po intake Nursing Note:
[2018-11-28 14:56] VITALS: BP 128/93; PULSE 87; RESP 16; TEMP 36.5; O2SAT 99
== END 2018-11-28 15:06 | disposition home or self-care (01) ==
PROVIDERS: Emergency Provider Physician Assistant; PCP Nurse Practitioner Family
DX: E11.9 Type 2 diabetes mellitus without complications (principal)
CPT/HCPCS: 36415; 80053; 99284; 70450; 81003; 83735; 84484; 85025; 85610; 85730; J3490

== ENCOUNTER 2019-01-02 08:15 | Emergency (ER) | payer OTHER, MEDICAID, SELFPAY ==
[2019-01-02 08:19] VITALS: BP 120/77; PULSE 91; RESP 16; TEMP 36.6; O2SAT 97
--- NOTE | 2019-01-02 08:31 | W.ED.GENAD ---
Discharge Plan Disposition Patient Disposition: HOME Condition: Stable Discharge Details Chief Complaint: Orthopedic Clinical Impression: Bilateral knee pain Primary Care Provider: Balaji Sheets ED Provider: Raeann Iglesias Home Meds and New Rx's Prescriptions: Continued sertraline 100 mg tablet 200 mg PO DAILY RF: 0 ibuprofen 800 mg tablet 800 mg PO TID PRNQty: 90 RF: 0 acyclovir 200 mg capsule 200 mg PO Q4HR Qty: 25 RF: 4 insulin lispro [Humalog U-100 Insulin] 100 UNIT/ML solution 0 - 12 units SQ AC RF: 0 Lantus Solostar U-100 Insulin 300 UNITS/3 ML insulin pen 60 units SQ HS RF: 0 Discharge Instructions Instructions: Knee Pain (ED), Patellar Tendinitis (ED) Additional Instructions: Please return immediately to the emergency department if you develop any new or worsening symptoms or if you become otherwise concerned. It is extremely important that you call as soon as possible to make an appointment to be seen by her primary care doctor, and also by physical therapy as we discussed. Stand Alone Forms: Work Release Referrals: Balaji Sheets NP [Primary Care Provider] - Noe Ballard PT [PHYSICAL THERAPIST] - Discharge Data Discharge Date/Time-TO BE ENTERED AT DEPARTURE: 01/02/19 09:52 Medical Decision Making Omayra Wiggins is a 38-year-old woman with history of insulin dependent diabetes who presented to the emergency department with 1 month of gradually worsening right knee pain and 1 to 2 weeks of mild left knee pain, worse with bending knees/climbing stairs/kneeling. On exam patient is very well and nontoxic appearing. Tenderness over the patellar tendon worse at the tibial insertion. No knee effusion bilaterally, no erythema or overlying skin changes, no lower extremity edema, no posterior calf tenderness to palpation. Able to range knees fully. Concern for likely patellar tendinopathy. Exam/history is not consistent with fracture, septic arthritis or other infectious process, DVT. Plan for rest, ice, home meds that use, outpatient follow-up with PCP and with physical therapy. I offered screening x-rays, but patient refused at this time. I had a lengthy discussion with the patient regarding return to emergency department precautions, importance of outpatient follow-up, and home care. Patient verbalized understanding of the plan was amenable. All questions were answered. Patient was discharged home with clear plan for outpatient follow-up. Work note provided requesting the patient be allowed to sit at work as needed secondary to pain. Medical Records Medical records reviewed: Yes I reviewed the patient's medical records. HPI General Mode of arrival: ambulatory. Date/Time Provider Initiated Documentation: 01/02/19 08:31. Limitations to Documentation: no limitations. Information obtained by: patient, RN notes reviewed and old records reviewed. HPI Narrative: Omayra Wiggins is a 38-year-old woman with history of insulin-dependent diabetes presenting to the emergency department with knee pain. Patient reports that over the past month she has noted progressively worsening pain in her right knee. Pain seems worse with climbing stairs or kneeling. Patient reports that over the past week or so, she also has same pain but milder in her left knee as well. She has not had similar symptoms in the past. No trauma. No recent change in activity level, although she states that she has 3 children and works at [employer] where she is required to be on her feet all day. She denies fever, rash, shortness of breath, cough, swelling, vomiting, diarrhea, any other pain. Patient reports that she came in today for work note, as her pain is much improved with sitting which she has not been allowed to do at work. Has been eating and drinking as usual. No recent travel. Related Data Home Medications Medication Instructions Recorded Confirmed Lantus Solostar U-100 Insulin 60 units SQ HS 05/12/15 01/02/19 insulin lispro [Humalog U-100 0 - 12 units SQ AC 05/12/15 01/02/19 Insulin] ibuprofen 800 mg tablet 800 mg PO TID PRN #90 04/01/18 01/02/19 sertraline 100 mg tablet 200 mg PO DAILY tab 04/01/18 01/02/19 acyclovir 200 mg capsule 200 mg PO Q4HR #25 tab-cap 04/25/18 01/02/19 Previous Rx's Medication Instructions Recorded acyclovir 200 mg capsule 200 mg PO Q4HR #25 tab-cap 04/25/18 Allergies Allergy/AdvReac Type Severity Reaction Status Date / Time amoxicillin Allergy Mild Hives Unverified 11/10/18 10:10 General Stated Complaint: Orthopedic RADHA: 4 Review of Systems Review of Systems Constitutional: denies fevers Eyes: denies eye pain ENT: denies facial pain, dental pain, sore throat Cardiovascular: denies chest pain, edema Respiratory: denies SOB, cough GI: denies abdominal pain, vomiting, diarrhea : denies flank pain MSK: denies back pain, neck pain, myalgias, report knee pain Skin: denies rash Neuro: denies headaches, numbness, weakness [facility] Medical History Depression (Chronic) Diabetes (Chronic) GERD (gastroesophageal reflux disease) (Chronic) Migraine (Chronic) Social History Smoking/Tobacco Use Status: Never Alcohol Intake: current Alcohol Intake frequency: a few times a month Drug use: Occasionally Substance use type: marijuana Adopted: No Household members: children What type of physical activity do you participate in: normal ROM and activity Do you feel safe at home: Yes Do you feel safe in your relationship?: Yes Exam Narrative Exam Narrative: Constitutional: well and [id number], pleasant, conversing normally HENT: head atraumatic/normocephalic/normal inspection, mucous membranes moist Eyes: conjunctiva normal, sclera normal, pupils 3mm b/l Neck: no stridor, normal ROM, trachea midline Resp: normal work of breathing, LCTAB Cardio: normal rate, normal rhythm, no murmur appreciated Skin: warm, dry, normal color, no rash Neuro: alert, not altered, grossly non-focal, normal tone Ext: normal inspection b/l legs. No knee effusion b/l. right knee TTP focally over inferior patella, tibial tuberosity. No overlying skin changes. No other TTP of the knee. Normal motor/sensation. DP pulses intact and symmetric. Mild TTP same area left knee, no other abnormal findings. Full ROM b/l knees. No lower ext edema, no posterior calf tenderness b/l. Psych: normal mood, normal affect, normal behavior Course Vital Signs Temperature 36.6 C 01/02/19 08:19 Pulse 91 H 01/02/19 08:19 Respiratory Rate 16 01/02/19 08:19 Blood Pressure 120/77 01/02/19 08:19 Pulse Oximetry 97 01/02/19 08:19 Temperature 36.6 C 01/02/19 08:19 Temperature Source Skin 01/02/19 08:19 Pulse 91 H 01/02/19 08:19 Respiratory Rate 16 01/02/19 08:19 Respiratory Effort Non-Labored 01/02/19 08:19 Blood Pressure 120/77 01/02/19 08:19 Blood Pressure Position Supine 01/02/19 08:19 Pulse Oximetry 97 01/02/19 08:19 Oxygen Delivery Method Room Air 01/02/19 08:19 Oxygen Flow Rate 0 01/02/19 08:19 Pain Level 7 01/02/19 08:19
[2019-01-02 09:49] VITALS: BP 120/80; PULSE 71; RESP 16; O2SAT 96
== END 2019-01-02 09:52 | disposition home or self-care (01) ==
PROVIDERS: Emergency Provider Student in an Organized Health Care Education/Training Program; PCP Nurse Practitioner Family
DX: M25.561 Pain in right knee (principal); M25.562 Pain in left knee; E11.9 Type 2 diabetes mellitus without complications; Z79.4 Long term (current) use of insulin
CPT/HCPCS: 99282

== ENCOUNTER 2019-01-06 16:07 | Outpatient (REF) | payer MEDICAID, SELFPAY ==
[2019-01-06 20:24] LABS: Microalb ug/mg Crea 9.7 ug/mg Cr
== END 2019-01-06 16:27 ==
LOC: NCHCN 16:07
PROVIDERS: PCP Nurse Practitioner Family; Visit Provider Nurse Practitioner Family
DX: E11.9 Type 2 diabetes mellitus without complications (principal)
CPT/HCPCS: 82043; 82570

== ENCOUNTER 2019-05-10 11:09 | Outpatient (CLI) | payer OTHER, SELFPAY ==
--- NOTE | 2019-05-10 11:10 | DI.RAD_ITS ---
EXAM: XR KNEE RT 3V AP,LAT,BULMARO CLINICAL HISTORY: pain TECHNIQUE: AP and lateral views of the right knee and bilateral Merchant views were obtained. COMPARISON: No exams were available for comparison FINDINGS: No bony abnormality seen. There is mild bilateral lateral patellar subluxation, right greater than left.
== END 2019-05-10 11:29 ==
PROVIDERS: PCP Nurse Practitioner Family; Visit Provider Orthopaedic Surgery
DX: M25.561 Pain in right knee (principal); S83.011A Lateral subluxation of right patella, initial encounter
CPT/HCPCS: 73562

== ENCOUNTER 2020-03-13 19:37 | Outpatient (REF) | payer MEDICAID, SELFPAY ==
[2020-03-15 22:00] LABS: Patient Race White; SARS-CoV-2 RNA Undetected (Undetected); SARS-CoV-2 Specimen Source Nasal
== END 2020-03-13 19:57 ==
LOC: NCHCN 19:37
PROVIDERS: PCP Nurse Practitioner Family; Visit Provider Nurse Practitioner Family
DX: Z20.828 Contact with and (suspected) exposure to other viral communicable diseases (principal)
CPT/HCPCS: U0003

== ENCOUNTER 2020-06-13 11:41 | Outpatient (REF) | payer MEDICAID, SELFPAY ==
--- NOTE | 2020-06-13 11:00 | PAPFT_PTH ---
PATIENT: Omayra Wiggins LOC: [facility] U#:[id number] AGE/SX: 39/F ROOM: RE06/13/[address]: KARINA Ardon : 1980 BED: DIS: 06/13/2020 SPEC #: [id number] RECD: 06/13/20 15:36 STATUS: JUAN REQ #: [id number] ASYA: 06/13/20 11:[address]: Eileen Werner DEPT: [facility] Cytology RECD BY: Jonelle Lovell ENTERED: 06/13/20 15:36 SP TYPE: PAPFT OTHR DR: Balaji Sheets Tissues: 1 - CX/ENDOCX FOR PAP SMEARS Procedures: PAP THIN PREP/UVM Screening HPV DNA PROBE Comments: [id number]
[2020-06-15 08:04] LABS: Chlamydia Result Negative (Negative); GC Result Negative (Negative)
== END 2020-06-13 12:01 ==
LOC: LBN 11:41
PROVIDERS: PCP Nurse Practitioner Family; Visit Provider Nurse Practitioner Family
DX: Z11.3 Encounter for screening for infections with a predominantly sexual mode of transmission (principal); Z12.4 Encounter for screening for malignant neoplasm of cervix; Z11.51 Encounter for screening for human papillomavirus (HPV)
CPT/HCPCS: 87491; 87591; 88142; 87624

== ENCOUNTER 2020-12-12 15:35 | Outpatient (REF) | payer MEDICAID, SELFPAY ==
[2020-12-12 19:38] LABS: Anion Gap 11.4 mmol/L (3-11); BUN 8 mg/dL (7-18); CO2 24.6 mmol/L (21.0-32.0); CREATININE 0.7 mg/dL (0.55-1.02); Calcium 8.6 mg/dL (8.5-10.1); Chloride 104 mmol/L (98-107); Cholesterol 244 mg/dL (<200); Glucose 257 mg/dL (74-106); HDL Cholesterol 33 mg/dL (40-60); Potassium 3.9 mmol/L (3.5-5.1); Sodium 140 mmol/L (136-145); Triglyceride 536 mg/dL (<150)
[2020-12-12 19:54] LABS: LDL CHOLESTEROL 134 mg/dL (<100)
== END 2020-12-12 15:36 | disposition home or self-care (01) ==
LOC: NCHCN 15:35
PROVIDERS: PCP Nurse Practitioner Family; Visit Provider Nurse Practitioner Family
DX: Z00.00 Encounter for general adult medical examination without abnormal findings (principal); Z13.220 Encounter for screening for lipoid disorders; E11.9 Type 2 diabetes mellitus without complications; Z79.4 Long term (current) use of insulin
CPT/HCPCS: 80048; 80061; 83721

== ENCOUNTER 2021-09-26 09:09 | Outpatient (REF) | payer MEDICAID, SELFPAY ==
[2021-09-26 21:30] LABS: Anion Gap 8.8 mmol/L (3-11); BUN 9 mg/dL (7-18); CO2 28.2 mmol/L (21.0-32.0); CREATININE 0.8 mg/dL (0.55-1.02); Calcium 9.1 mg/dL (8.5-10.1); Chloride 103 mmol/L (98-107); Cholesterol 229 mg/dL (<200); Glucose 197 mg/dL (74-106); HDL Cholesterol 38 mg/dL (40-60); Potassium 4.1 mmol/L (3.5-5.1); Sodium 140 mmol/L (136-145); Triglyceride 425 mg/dL (<150)
[2021-09-26 21:50] LABS: LDL CHOLESTEROL 125 mg/dL (<100)
== END 2021-09-26 09:10 | disposition home or self-care (01) ==
LOC: NCHCN 09:09
PROVIDERS: PCP Nurse Practitioner Family; Visit Provider Nurse Practitioner Family
DX: E11.9 Type 2 diabetes mellitus without complications (principal); E78.2 Mixed hyperlipidemia
CPT/HCPCS: 80048; 80061; 83721

== ENCOUNTER 2022-04-21 15:13 | Outpatient (REF) | payer MEDICAID, SELFPAY ==
[2022-04-21 15:39] LABS: Calculated LDL 28 mg/dL (<100); Cholesterol 141 mg/dL (<200); HDL Cholesterol 37 mg/dL (40-60); Triglyceride 380 mg/dL (<150)
== END 2022-04-21 15:14 | disposition home or self-care (01) ==
LOC: NCHCN 15:13
PROVIDERS: PCP Nurse Practitioner Family; Visit Provider Nurse Practitioner Family
DX: E78.2 Mixed hyperlipidemia (principal)
CPT/HCPCS: 80061

== ENCOUNTER 2022-07-30 14:09 | Outpatient (REF) | payer MEDICAID, SELFPAY ==
[2022-07-30 15:08] LABS: HCT 44.3 % (36.0-46.0); HGB 14.8 g/dL (11.2-15.7); MCH 28.1 pg (27.0-33.0); MCHC 33.4 % (32.0-36.0); MCV 84 fL (80-95); MPV 10.6 fL (8.0-11.0); Platelet Count 236 10^3/uL (130-400); RBC 5.27 10^6/uL (3.93-5.22); RDW 12.3 % (11.7-14.6); RDW-SD 37.1 fL; WBC 9.54 10^3/uL (4.4-10.8)
[2022-07-30 15:29] LABS: Anion Gap 11.6 mmol/L (3-11); BUN 10 mg/dL (7-18); CO2 24.4 mmol/L (21.0-32.0); CREATININE 0.8 mg/dL (0.55-1.02); Calcium 9.5 mg/dL (8.5-10.1); Chloride 102 mmol/L (98-107); Estimated GFR 94.87 (mL/min/1.73m2); Glucose 330 mg/dL (74-106); Sodium 138 mmol/L (136-145)
[2022-07-30 15:39] LABS: Iron 51 ug/dL (50-170); Total Iron Binding Capacity 346 ug/dL (250-450); Transferrin Sat 15 % (15-50)
== END 2022-07-30 14:10 | disposition home or self-care (01) ==
LOC: NCHCN 14:09
PROVIDERS: PCP Nurse Practitioner Family; Visit Provider Nurse Practitioner Family
DX: E11.9 Type 2 diabetes mellitus without complications (principal); Z79.4 Long term (current) use of insulin; E55.9 Vitamin D deficiency, unspecified
CPT/HCPCS: 80048; 82306; 85027; 83540; 83550; 84443

== ENCOUNTER 2022-11-20 14:40 | Outpatient (REF) | payer MEDICAID, SELFPAY ==
[2022-11-20 18:32] LABS: ALT 23 U/L (14-59); AST 7 U/L (15-37); Albumin 3.6 g/dL (3.4-5.0); Alkaline Phosphatase 140 U/L (46-116); Anion Gap 11.2 mmol/L (3-11); BUN 12 mg/dL (7-18); Bilirubin, Total 0.4 mg/dL (0.2-1.0); CO2 22.8 mmol/L (21.0-32.0); CREATININE 0.9 mg/dL (0.55-1.02); Chloride 98 mmol/L (98-107); Cholesterol 291 mg/dL (<200); Estimated GFR 81.86 (mL/min/1.73m2); Glucose 383 mg/dL (74-106); HDL Cholesterol 34 mg/dL (40-60); Potassium 3.8 mmol/L (3.5-5.1); Sodium 132 mmol/L (136-145); Total Protein 8.1 g/dL (6.4-8.2); Triglyceride 856 mg/dL (<150)
[2022-11-20 18:37] LABS: COMMENT (LAB VIEW ONLY) 71.05 mg/dL; Microalb ug/mg Crea 15.3 ug/mg Cr
[2022-11-20 18:43] LABS: LDL CHOLESTEROL 105 mg/dL (<100)
[2022-11-20 18:58] LABS: Hemoglobin A1C 12.3 % (<5.7)
== END 2022-11-20 14:41 | disposition home or self-care (01) ==
LOC: NCHCN 14:40
PROVIDERS: PCP Nurse Practitioner Family; Visit Provider Nurse Practitioner Family
DX: E11.9 Type 2 diabetes mellitus without complications (principal); E78.2 Mixed hyperlipidemia
CPT/HCPCS: 80053; 80061; 83721; 82043; 82570; 83036

== ENCOUNTER 2022-11-29 16:18 | Emergency (ER) | payer MEDICAID, SELFPAY ==
[2022-11-29 16:31] VITALS: BP 134/93; PULSE 93; RESP 18; TEMP 37.1; O2SAT 97
--- NOTE | 2022-11-29 17:15 | ED.GENADUL_ITS ---
Discharge Plan Disposition Patient Disposition: Home Discharge Details Clinical Impression: Abscess, dental Primary Care Provider: Ila Barton ED Provider: Jonelle Pelaez Home Meds and New Rx's Prescriptions: New clindamycin HCl 300 mg capsule 300 mg PO Q6H 10 Days Qty: 40 0RF Continued sertraline 100 mg tablet 200 mg PO DAILY ibuprofen 800 mg tablet 800 mg PO TID PRNQty: 90 acyclovir 200 mg capsule 200 mg PO Q4HR Qty: 25 4RF Patient Comments: not taking Rx Instructions: Take 1 tab every 4 hours, five times a day for 5 days insulin lispro [Humalog U-100 Insulin] 100 UNIT/ML solution 0 - 12 units SQ AC insulin glargine [Lantus Solostar U-100 Insulin] 300 UNITS/3 ML insulin pen 60 units SQ HS metformin 500 mg tablet extended release 24 hr 1,000 mg PO BID Patient Comments: Take 2 tablet by mouth twice a day with meals rosuvastatin 20 mg tablet 20 mg PO DAILY Discharge Instructions Instructions: Dental Abscess (ED) Additional Instructions: Take antibiotic as prescribed Yogurt daily while on antibiotic so you do not develop an opportunistic stool infection Follow-up with a dentist, you may actually look on the Medicaid website as there is a list of dental resources available Please return should you develop new or worsening complaints Discharge Data Discharge Date/Time-TO BE ENTERED AT DEPARTURE: 11/29/22 18:20 Medical Decision Making Patient is 42-year-old female who presents with right-sided upper tooth pain. Denies any fever or chills. Denies chest pain or shortness of breath. Concern for dental abscess Placed on clindamycin secondary to penicillin allergy Dental referral sheet supplied Ibuprofen and Tylenol encouraged Appropriate food choices for dental pain reviewed Afebrile and nontoxic, no clinical evidence of Elenita's angina Return precautions reviewed and patient expressed understanding HPI General Date/Time Provider Initiated Documentation: 11/29/22 17:06 . HPI Narrative: This 42-year-old female presents with right-sided upper dental pain going on for several months. She states its worse this week. Denies fever or chills. Thinks she cracked her tooth approximately 3 months ago. States she is able to open her jaw without difficulty but biting down on food causes discomfort. Denies any difficulty swallowing. Related Data Home Medications Medication Instructions Recorded Confirmed insulin glargine 100 unit/mL (3 60 units SQ HS 05/12/15 11/29/22 mL) subcutaneous pen (Lantus Solostar U-100 Insulin) insulin lispro 100 unit/mL 0 - 12 units SQ AC 05/12/15 11/29/22 subcutaneous solution (Humalog U-100 Insulin) ibuprofen 800 mg tablet 800 mg PO TID PRN ##90 04/01/18 11/29/22 sertraline 100 mg tablet 200 mg PO DAILY 04/01/18 11/29/22 acyclovir 200 mg capsule 200 mg PO Q4HR #25 tab-caps 04/25/18 05/10/19 clindamycin HCl 300 mg capsule 300 mg PO Q6H 10 days #40 caps 11/29/22 metformin 500 mg tablet,extended 1,000 mg PO BID 11/29/22 11/29/22 release 24 hr rosuvastatin 20 mg tablet 20 mg PO DAILY 11/29/22 11/29/22 Previous Rx's Medication Instructions Recorded acyclovir 200 mg capsule 200 mg PO Q4HR #25 tab-caps 04/25/18 clindamycin HCl 300 mg capsule 300 mg PO Q6H 10 days #40 caps 11/29/22 Allergies Allergy/AdvReac Type Severity Reaction Status Date / Time amoxicillin Allergy Mild Hives Verified 06/13/20 10:37 General Stated Complaint: FacialProb RADHA: 4 PFSH All Active Problems (Updated 11/29/22 @ 17:18 by JONATHAN Martínez) Abscess, dental (Acute) Patellofemoral syndrome, right (Acute) Polycystic ovaries (Acute 05/02/13) Migraine headache (Acute 01/16/14) Medication overuse headache (Acute 01/16/14) Imbalance (Acute 12/28/13) Diabetes mellitus (Acute 05/02/13) Encounter for routine checking of intrauterine contraceptive device (IUD) (Acute 05/02/13) Contraception (Acute 09/11/16) Chronic migraine (Acute 01/16/14) Abnormal auditory perception (Acute 12/28/13) URI, acute (Acute) Medical History (Updated 11/29/22 @ 17:18 by JONATHAN Martínez) Depression Diabetes GERD (gastroesophageal reflux disease) Migraine Surgical History Appendectomy 2010 section 2012 Cholecystectomy 2002 Diagnostic Laproscopy 2009 R ovarian cyst Family History Father Hypertension Non-Hodgkin lymphoma in remission Social History Smoking/Tobacco Use Status: Never Smoking risk assessment performed?: Yes Alcohol Intake: current Alcohol Intake frequency: a few times a month Drug use: Occasionally Substance use type: marijuana Adopted: No Household members: children Current gender identity: female What type of physical activity do you participate in: normal ROM and activity Do you feel safe at home: Yes Do you feel safe in your relationship?: Yes Exam Narrative Exam Narrative: Patient with fractured tooth to #2 tooth on right, no maxillary tenderness, no trismus, no submandibular lymphadenopathy, lungs clear to auscultation, alert and oriented x4 Course Vital Signs Vital signs: Vital Signs Temperature 37.1 C 11/29/22 16:31 Pulse 93 H 11/29/22 16:31 Respiratory Rate 18 11/29/22 16:31 Blood Pressure 134/93 H 11/29/22 16:31 Pulse Oximetry 97 11/29/22 16:31 Temperature 37.1 C 11/29/22 16:31 Temperature Source Skin 11/29/22 16:31 Pulse 93 H 11/29/22 16:31 Respiratory Rate 18 11/29/22 16:31 Respiratory Effort Normal 11/29/22 16:34 Blood Pressure 134/93 H 11/29/22 16:31 Blood Pressure Position Sitting 11/29/22 16:31 Pulse Oximetry 97 11/29/22 16:31 Oxygen Delivery Method Room Air 11/29/22 16:31 Oxygen Flow Rate 0 11/29/22 16:31 Pain Level 8 11/29/22 16:31
[2022-11-29 18:02] VITALS: BP 134/93; PULSE 88; RESP 18; TEMP 37.1; O2SAT 97
[2022-11-29] MEDS: Clindamycin 300 MG CAP PO (18:18)
== END 2022-11-29 18:20 | disposition home or self-care (01) ==
PROVIDERS: Emergency Provider Physician Assistant; PCP Nurse Practitioner Family
DX: G50.1 Atypical facial pain (principal)
CPT/HCPCS: 99283; 99284

== ENCOUNTER 2023-06-10 11:21 | Outpatient (REF) | payer MEDICAID, SELFPAY ==
[2023-06-10 19:30] LABS: ALT 33 U/L (14-59); AST 13 U/L (15-37); Albumin 3.4 g/dL (3.4-5.0); Alkaline Phosphatase 97 U/L (46-116); Anion Gap 9.6 mmol/L (3-11); BUN 10 mg/dL (7-18); Bilirubin, Total 0.6 mg/dL (0.2-1.0); CO2 26.4 mmol/L (21.0-32.0); CREATININE 0.8 mg/dL (0.55-1.02); Calcium 9.3 mg/dL (8.5-10.1); Calculated LDL 161 mg/dL (<100); Chloride 104 mmol/L (98-107); Cholesterol 248 mg/dL (<200); Estimated GFR 94.28 (mL/min/1.73m2); Glucose 156 mg/dL (74-106); HDL Cholesterol 35 mg/dL (40-60); Potassium 3.8 mmol/L (3.5-5.1); Sodium 140 mmol/L (136-145); Triglyceride 264 mg/dL (<150)
== END 2023-06-10 11:22 | disposition home or self-care (01) ==
LOC: NCHCN 11:21
PROVIDERS: PCP Nurse Practitioner Family; Visit Provider Nurse Practitioner Family
DX: E11.9 Type 2 diabetes mellitus without complications (principal); E78.2 Mixed hyperlipidemia
CPT/HCPCS: 80053; 80061

== ENCOUNTER 2023-09-24 16:37 | Emergency (ER) | payer MEDICAID, SELFPAY ==
[2023-09-24 16:42] VITALS: BP 160/98; PULSE 90; RESP 14; TEMP 36.7; O2SAT 96
--- NOTE | 2023-09-24 17:48 | ED.GENADUL_ITS ---
Discharge Plan Disposition Patient Disposition: Home Condition: Stable Discharge Details Clinical Impression: Fracture, tooth Primary Care Provider: Ila Barton ED Provider: Jonelle Pelaez Home Meds and New Rx's Prescriptions: New clindamycin HCl 300 mg capsule 300 mg PO Q6H Qty: 40 0RF Continued sertraline 100 mg tablet 200 mg PO DAILY bisacodyl [Dulcolax (bisacodyl)] 5 mg tablet,delayed release (DR/EC) 5 mg PO ONCE Qty: 4 0RF Rx Instructions: Colonoscopy Bowel Prep- Per Instructions polyethylene glycol 3350 17 gram/dose powder 238 g PO ONCE Qty: 238 0RF Rx Instructions: Colonoscopy Bowel Prep- Per Instructions ibuprofen 800 mg tablet 800 mg PO TID PRNQty: 90 liraglutide 0.6 mg/0.1 mL (18 mg/3 mL) pen injector 1.8 mg subcut DAILY insulin glargine [Lantus Solostar U-100 Insulin] 100 unit/mL (3 mL) insulin pen 80 unit subcut HS Rx Instructions: increase by 5 units every week until fasting glucose <140 insulin lispro [Humalog U-100 Insulin] 100 UNIT/ML solution 0 - 12 units SQ AC metformin 500 mg tablet extended release 24 hr 1,000 mg PO BID Patient Comments: Take 2 tablet by mouth twice a day with meals Discharge Instructions Additional Instructions: Call [facility] to establish care take motrin and tylenol for pain refrain from hot and cold items secondary to the epoxy return with new or worsening complaints Referrals: Ila Barton [Primary Care Provider] - Discharge Data Discharge Date/Time-TO BE ENTERED AT DEPARTURE: 09/24/23 18:06 HPI General Date/Time Provider Initiated Documentation: 09/24/23 16:59 . HPI Narrative: This 42-year-old female with history of diabetes and PCOS presents with report of right upper dental pain which started couple weeks ago, was seen by her primary care physician and started on doxycycline for a sinus infection but patient thinks to fractured tooth instead. She states the pain is worsened. She states her blood sugar today have been in the 100s which is her baseline. She has any fever or chills. The pain is worsened with extremes of temperature and chewing. She denies any chance of . She does not currently have a dentist. She denies any difficulty swallowing or shortness of breath. She denies any chest discomfort. Related Data Home Medications Medication Instructions Recorded Confirmed insulin lispro 100 unit/mL 0 - 12 units SQ AC 05/12/15 09/15/23 subcutaneous solution (Humalog U-100 Insulin) ibuprofen 800 mg tablet 800 mg PO TID PRN ##90 04/01/18 09/15/23 sertraline 100 mg tablet 200 mg PO DAILY 04/01/18 09/15/23 metformin 500 mg tablet,extended 1,000 mg PO BID 11/29/22 09/15/23 release 24 hr insulin glargine 100 unit/mL (3 80 unit subcut HS 03/17/23 09/15/23 mL) subcutaneous pen (Lantus Solostar U-100 Insulin) liraglutide 0.6 mg/0.1 mL (18 mg/3 1.8 mg subcut DAILY 03/17/23 09/15/23 mL) subcutaneous pen injector bisacodyl 5 mg tablet,delayed 5 mg PO ONCE Colonoscopy Bowel 06/30/23 09/15/23 release (Dulcolax (bisacodyl)) Prep #4 tabs polyethylene glycol 3350 17 238 g PO ONCE Colonoscopy Bowel 06/30/23 09/15/23 gram/dose oral powder Prep #238 grams clindamycin HCl 300 mg capsule 300 mg PO Q6H #40 caps 09/24/23 Previous Rx's Medication Instructions Recorded bisacodyl 5 mg tablet,delayed 5 mg PO ONCE Colonoscopy Bowel 06/30/23 release (Dulcolax (bisacodyl)) Prep #4 tabs polyethylene glycol 3350 17 238 g PO ONCE Colonoscopy Bowel 06/30/23 gram/dose oral powder Prep #238 grams clindamycin HCl 300 mg capsule 300 mg PO Q6H #40 caps 09/24/23 Allergies Allergy/AdvReac Type Severity Reaction Status Date / Time amoxicillin Allergy Mild Hives Verified 09/24/23 16:48 General Stated Complaint: DentalOral RADHA: 4 Course Vital Signs Vital signs: Vital Signs Temperature 36.7 C 09/24/23 16:42 Pulse 90 09/24/23 16:42 Respiratory Rate 14 09/24/23 16:42 Blood Pressure 160/98 H 09/24/23 16:42 Pulse Oximetry 96 09/24/23 16:42 Temperature 36.7 C 09/24/23 16:42 Temperature Source Skin 09/24/23 16:42 Pulse 90 09/24/23 16:42 Respiratory Rate 14 09/24/23 16:42 Respiratory Effort Normal, Non-Labored 09/24/23 16:48 Blood Pressure 160/98 H 09/24/23 16:42 Blood Pressure Position Sitting 09/24/23 16:42 Pulse Oximetry 96 09/24/23 16:42 Oxygen Delivery Method Room Air 09/24/23 16:42 Oxygen Flow Rate 0 09/24/23 16:42 Pain Level 9 09/24/23 16:42 Medical Decision Making 42-year-old female presenting in no acute distress with fractured #2 tooth, Dycal was applied and patient had good symptomatic improvement I switched her to clindamycin from doxycycline and she will follow-up with dentist, supplied her with a list of local dentists that accept Medicaid There is no evidence of Omer's angina No facial swelling Will follow-up with dentist Return precautions reviewed and patient expressed understanding Quality:SDOH Health Related Social Needs: No Data to Display PFSH All Active Problems (Updated 09/24/23 @ 17:49 by JONATHAN Martínez) Fracture, tooth (Acute) Mixed hyperlipidemia (Acute) Neuropathy of right foot (Acute) Patellofemoral syndrome, right (Acute) Polycystic ovaries (Acute 05/02/13) Migraine headache (Acute 01/16/14) Medication overuse headache (Acute 01/16/14) Imbalance (Acute 12/28/13) Diabetes mellitus (Acute 05/02/13) Encounter for routine checking of intrauterine contraceptive device (IUD) (Acute 05/02/13) Contraception (Acute 09/11/16) Chronic migraine (Acute 01/16/14) Abnormal auditory perception (Acute 12/28/13) URI, acute (Acute) Medical History (Updated 09/24/23 @ 17:49 by JONATHAN Martínez) Anxiety GERD (gastroesophageal reflux disease) Depression Migraine Diabetes Surgical History section 2011 Diagnostic Laproscopy 2009 R ovarian cyst Cholecystectomy 2002 Appendectomy 2010 Family History (Updated 06/30/23 @ 13:49 by JONATHAN Begum) Father Hypertension Non-Hodgkin lymphoma in remission Colon cancer Mother Colon cancer Social History (Updated 06/30/23 @ 13:50 by JONATHAN Begum) Smoking/Tobacco Use Status: Never Smoking risk assessment performed?: Yes Alcohol Intake: current Alcohol Intake frequency: a few times a month Drug use: Rarely Substance use type: marijuana Adopted: No Household members: children Housing: apartment Current gender identity: female What type of physical activity do you participate in: normal ROM and activity Do you feel safe at home: Yes Do you feel safe in your relationship?: Yes
[2023-09-24] MEDS: Benzocaine 20% Gel 30 GM JAR MM (18:05)
== END 2023-09-24 18:06 | disposition home or self-care (01) ==
LOC: ER 17:56
PROVIDERS: Emergency Provider Physician Assistant; PCP Nurse Practitioner Family
DX: S02.5XXA Fracture of tooth (traumatic), initial encounter for closed fracture; X58.XXXA Exposure to other specified factors, initial encounter
CPT/HCPCS: 99283

== ENCOUNTER 2023-10-13 10:38 | Outpatient (REF) | payer MEDICAID, SELFPAY ==
[2023-10-13 14:15] LABS: Hemoglobin A1C 9.7 % (<5.7)
== END 2023-10-13 10:39 | disposition home or self-care (01) ==
LOC: NCHCN 10:38
PROVIDERS: PCP Nurse Practitioner Family; Visit Provider Nurse Practitioner Family
DX: E11.9 Type 2 diabetes mellitus without complications (principal)
CPT/HCPCS: 83036

== ENCOUNTER 2023-10-19 13:34 | Outpatient (REF) | payer MEDICAID, SELFPAY ==
[2023-10-19 15:28] LABS: Abs Immature Grans 0.02 10^3/uL (0.0-0.06); Absolute Basophil Count 0.05 10^3/uL (0.0-0.2); Absolute Eosinophil Count 0.14 10^3/uL (0.0-0.7); Absolute Lymphocyte Count 2.56 10^3/uL (1.2-3.4); Absolute Monocyte Count 0.56 10^3/uL (0.1-0.8); Absolute Neutrophil Count 5.79 10^3/uL (1.2-6.7); Basophils % 0.5 %; Eosinophils % 1.5 %; HCT 43.4 % (36.0-46.0); HGB 14.2 g/dL (11.2-15.7); Immature Grans % 0.2 %; Lymphocytes % 28.1 %; MCH 27.8 pg (27.0-33.0); MCHC 32.7 % (32.0-36.0); MCV 85 fL (80-95); MPV 11.5 fL (8.0-11.0); Monocytes % 6.1 %; Neutrophils % 63.6 %; Platelet Count 264 10^3/uL (130-400); RDW 12.5 % (11.7-14.6); RDW-SD 38.5 fL; WBC 9.12 10^3/uL (4.4-10.8)
[2023-10-19 16:15] LABS: COMMENT (LAB VIEW ONLY) 281.98 mg/dL; Microalb ug/mg Crea 6.4 ug/mg Cr
[2023-10-19 16:25] LABS: ALT 22 U/L (14-59); AST 11 U/L (15-37); Albumin 3.5 g/dL (3.4-5.0); Alkaline Phosphatase 99 U/L (46-116); Anion Gap 10.9 mmol/L (3-11); BUN 19 mg/dL (7-18); Bilirubin, Total 0.4 mg/dL (0.2-1.0); CO2 26.1 mmol/L (21.0-32.0); CREATININE 0.8 mg/dL (0.55-1.02); Calcium 9.3 mg/dL (8.5-10.1); Calculated LDL 150 mg/dL (<100); Chloride 107 mmol/L (98-107); Cholesterol 254 mg/dL (<200); Estimated GFR 94.28 (mL/min/1.73m2); Glucose 210 mg/dL (74-106); HDL Cholesterol 40 mg/dL (40-60); Potassium 4.2 mmol/L (3.5-5.1); Sodium 144 mmol/L (136-145); TSH (W/Ref FT4) 1.12 uIU/mL (0.36-3.74); Triglyceride 321 mg/dL (<150)
== END 2023-10-19 13:35 | disposition home or self-care (01) ==
LOC: NCHCN 13:34
PROVIDERS: PCP Nurse Practitioner Family; Visit Provider Nurse Practitioner Family
DX: E11.9 Type 2 diabetes mellitus without complications (principal); R53.83 Other fatigue; E78.2 Mixed hyperlipidemia
CPT/HCPCS: 80053; 80061; 82043; 82570; 84443; 85025

== ENCOUNTER 2023-11-03 09:12 | Emergency (ER) | payer MEDICAID, SELFPAY ==
[2023-11-03 09:19] VITALS: BP 135/97; PULSE 104; RESP 12; TEMP 36.1; O2SAT 97
--- NOTE | 2023-11-03 09:29 | ED.GENADUL_ITS ---
Discharge Plan Discharge Details Chief Complaint: Orthopedic Clinical Impression: Lisfranc dislocation Primary Care Provider: Ila Barton ED Provider: Jose Dixon Home Meds and New Rx's Prescriptions: No Action sertraline 100 mg tablet 200 mg PO DAILY ibuprofen 800 mg tablet 800 mg PO TID PRNQty: 90 liraglutide 0.6 mg/0.1 mL (18 mg/3 mL) pen injector 1.8 mg subcut DAILY insulin glargine [Lantus Solostar U-100 Insulin] 100 unit/mL (3 mL) insulin pen 80 unit subcut HS Rx Instructions: increase by 5 units every week until fasting glucose <140 insulin lispro [Humalog U-100 Insulin] 100 UNIT/ML solution 0 - 12 units SQ AC metformin 500 mg tablet extended release 24 hr 1,000 mg PO BID Patient Comments: Take 2 tablet by mouth twice a day with meals HPI General Date/Time Provider Initiated Documentation: 11/03/23 09:27 . HPI Narrative: 42 year-old female presents to ED today by POV/ambulating with a chief complaint of R foot and ankle pain- stubbed her foot on something last night, and awoke this morning with significantly worsened pain with onset this morning with any weight-bearing. Patient also endorses feeling a crunch or pop in her ankle while walking in a parking lot to L foot weeks ago-but that is only mildly painful at this time. Quality described as severe tenderness along lateral edge of R foot, no radiation to open lesion, significant ecchymosis, endorses some numbness- but has chronic diabetic neuropathy. Severity is described as severe. Palliating factors include nothing specific attempted. Provoking factors include nothing specific. Patient not anticoagulated. Related Data Home Medications Medication Instructions Recorded Confirmed insulin lispro 100 unit/mL 0 - 12 units SQ AC 05/12/15 11/03/23 subcutaneous solution (Humalog U-100 Insulin) ibuprofen 800 mg tablet 800 mg PO TID PRN ##90 04/01/18 11/03/23 sertraline 100 mg tablet 200 mg PO DAILY 04/01/18 11/03/23 metformin 500 mg tablet,extended 1,000 mg PO BID 11/29/22 11/03/23 release 24 hr insulin glargine 100 unit/mL (3 80 unit subcut HS 10/04/23 05/22/24 mL) subcutaneous pen (Lantus Solostar U-100 Insulin) liraglutide 0.6 mg/0.1 mL (18 mg/3 1.8 mg subcut DAILY 03/17/23 11/03/23 mL) subcutaneous pen injector Allergies Allergy/AdvReac Type Severity Reaction Status Date / Time amoxicillin Allergy Mild Hives Verified 11/03/23 10:15 General Stated Complaint: Orthopedic RADHA: 4 Review of Systems All systems reviewed & are unremarkable except as noted in HPI and below Exam Narrative Exam Narrative: GENERAL APPEARANCE: Well-nourished, non-toxic, awake and alert, atraumatic, no acute distress. SKIN: Warm, pink, dry, intact, without rashes/lesions/ulcerations. HEAD: Normocephalic, atraumatic, normal hair distribution for gender/age. EYES: Pupils PERRLA, EOMs intact without nystagmus, normal conjunctiva, no exudates on lids/lashes. ENT: Nares patent, no circumoral cyanosis, no facial swelling NECK: Supple, trachea midline, painless cervical ROM. LUNGS/CHEST: Non-labored respirations, normal A/P diameter, symmetrical expansion, no chest wall deformity HEART (CV/PV): Regular rate, R dorsalis pedis pulse 2+, brisk capillary refill, no peripheral edema, no JVD. ABDOMEN: Soft, non-distended, no guarding. MSK: Normal ROM, no swelling/deformity to bilateral UEs or LEs, moving all extremities without weakness, no cyanosis, spine midline without tenderness, normal curvature. R LE: Mild swelling and redness throughout the right foot, lateral malleoli are swelling, dorsalis pedis intact, able to wiggle toes with pain, significant pain with plantar/dorsiflexion, no calf pain or swelling L LE: Mild lateral malleoli are swelling without crepitus, no significant deformity, strength 5/5, sensation intact NEURO: Mental Status AAOx4 - alert to person, place, time, events No facial droop, no forehead involvement. Motor: No focal weakness - strength 5/5 in bilateral UEs and LEs, proximal and distal, symmetric. Sensory: sensation intact to light touch globally. Gait NT PSYCH: euthymic, cooperative, pleasant, appropriate speech Course Vital Signs Vital signs: Vital Signs Temperature 36.1 C L 11/03/23 09:19 Pulse 104 H 11/03/23 09:19 Respiratory Rate 12 11/03/23 09:19 Blood Pressure 135/97 H 11/03/23 09:19 Pulse Oximetry 97 11/03/23 09:19 Temperature 36.1 C L 11/03/23 09:19 Temperature Source Temporal Artery Scan 11/03/23 09:19 Pulse 104 H 11/03/23 09:19 Respiratory Rate 12 11/03/23 09:19 Respiratory Effort Normal, Non-Labored 11/03/23 09:22 Blood Pressure 135/97 H 11/03/23 09:19 Blood Pressure Position Sitting 11/03/23 09:19 Pulse Oximetry 97 11/03/23 09:19 Oxygen Delivery Method Room Air 11/03/23 09:19 Oxygen Flow Rate 0 11/03/23 09:19 Pain Level 7 11/03/23 09:19 Medical Decision Making This dictation utilizes [id number] dictation software and may contain unedited grammatical errors. 42 y/o F presents after significant injury to R foot last night, hit her foot very hard on a step- felt a crunch and having severe pain with ambulation today. Notes swelling and slight numbness in forefoot but has history of neuropathy. Patient denies proximal pain, has a more minor L leg injury weeks ago while walking. Pertinent exam findings / vital signs include R LE: Mild swelling and redness throughout the right foot, lateral malleoli are swelling, dorsalis pedis intact, able to wiggle toes with pain, significant pain with plantar/dorsiflexion, no calf pain or swelling L LE: Mild lateral malleoli are swelling without crepitus, no significant deformity, strength 5/5, sensation intact. Differential / pathologies of concern include fracture, sprain/strain, contusion, not NV compromise Diagnostic studies of: -XR R & L Foot and Ankle, CT L Ankle - Lisfranc injury to R foot. Interventions of: -Consult Ortho Dr. Ruggiero, he is consulting with [facility] Ortho/Trauma. ED Course/Assessment/Plan: 42-year-old female slammed her foot very hard on a step last night and is having significant right foot pain. She is neurovascularly intact in the distal right foot, endorses a mild crunch and pop like sensation in the left ankle from a minor injury weeks ago. Imaging shows no acute fractures on the left. X-ray of the right foot shows a significant Lisfranc dislocation, discussed with orthopedics Dr. Verduzco who spoke with his colleague at [facility] with the trauma they likely will recommend transfer versus urgent outpatient follow-up for likely surgery. I did push images to [facility] and consult them for definitive possible time the patient needs to arrive at [facility] for procedure versus transfer. Patient lives on second floor of home and likely crutches will be very difficult, their body habitus and baseline neuropathy is an issue, they may possibly stay with parent for a day or 2 but there is still stairs involved. Placed patient in a posterior and stirrup splint, elevated the R foot, and provided analgesics. Patient signed out to oncoming provider Vale Bergman PA-C with pending ortho consult with [facility] for definitive plan. Findings not consistent with neurovascular compromise of R foot. Disposition of Lisfranc Dislocation. Patient verbalized understanding of the plan and return to ED criteria and nelly shay in shared decision making. Medical Records Medical records reviewed: Yes I reviewed the patient's medical records. Imaging Data Radiologic Study: Attestation: I personally reviewed and interpreted this imaging study as follows: Imaging: X-Ray Radiologist's impression: EXAM: XR ANKLE RT COMPLETE CLINICAL HISTORY: bilateral foot/ankle pain. TECHNIQUE: 2D digital imaging was performed. COMPARISON: No exams were available for comparison FINDINGS: 3 views There is soft tissue swelling around both sides of the ankle. No evidence of malleolar fractures nor widening of the ankle mortise. However, the significant findings are in the distal aspect of the field of view here where there appears to be evidence of significant Lisfranc injury. See separate foot report. IMPRESSION: Lisfranc injury. EXAM: XR ANKLE LT COMPLETE CLINICAL HISTORY: bilateral foot/ankle pain. TECHNIQUE: 2D digital imaging was performed. COMPARISON: CR XR ANKLE RT COMPLETE from 11/03/2023 FINDINGS: 3 views No evidence of acute fracture but there is slight tilting of the mortise noted. Talar dome appears intact. No evidence of calcaneus fracture. IMPRESSION: Slight tilting/rotation of the ankle mortise. Mild soft tissue swelling. If clinically indicated follow-up CT scan can be performed. EXAM: XR FOOT RT COMPLETE CLINICAL HISTORY: bilateral foot/ankle pain. TECHNIQUE: 2D digital imaging was performed. COMPARISON: No exams were available for comparison FINDINGS: 3 views There is diastasis of the Lisfranc joint consistent with significant injury, despite absence of obvious fracture lines in the midfoot/metatarsals. Dorsal soft tissue swelling at this level is noted.. IMPRESSION: Significant Lisfranc injury. Orthopedic consultation recommended. EXAM: XR FOOT LT COMPLETE CLINICAL HISTORY: bilateral foot/ankle pain. TECHNIQUE: 2D digital imaging was performed. COMPARISON: CR XR FOOT RT COMPLETE from 11/03/2023 FINDINGS: 3 views No evidence of acute fracture or diastasis of the Lisfranc joint. No metatarsal fractures evident. On the medial aspect of the foot there is an osteophytic density at the level of navicular tuberosity which is probably an ununited apophysis at this level. Pallor and are arch is maintained. IMPRESSION: No acute fractures evident in the left foot. No evidence of obvious Lisfranc injury, as is seen on the opposite-right side. EXAM: CT LOWER EXTREMITY LT WO CLINICAL HISTORY: tilting of ankle mortise on XR. TECHNIQUE: Imaging Protocol: Axial computed tomography images with coronal and sagittal reformatted images were created and reviewed. CONTRAST MATERIAL: Intravenous: None COMPARISON: No exams were available for comparison FINDINGS: OSSEOUS: There is no evidence of fracture or dislocation. Talar dome appears unremarkable . Bony alignment is satisfactory. The mid-foot is well maintained. No cellulitic or osteomyelitic changes are identified. There is no evidence of joint space narrowing or cystic degeneration seen. No lytic or sclerotic lesions are identified. Incidentally noted is an ununited apophysis or sesamoid at navicular tuberosity level. There is not related to acute trauma IMPRESSION: No acute fracture evident. Quality:SDOH Health Related Social Needs: No Data to Display PFSH All Active Problems (Updated 11/03/23 @ 15:28 by JONATHAN Rojas) Lisfranc dislocation (Acute) Mixed hyperlipidemia (Acute) Neuropathy of right foot (Acute) Patellofemoral syndrome, right (Acute) Polycystic ovaries (Acute 05/02/13) Migraine headache (Acute 01/16/14) Medication overuse headache (Acute 01/16/14) Imbalance (Acute 12/28/13) Diabetes mellitus (Acute 05/02/13) Encounter for routine checking of intrauterine contraceptive device (IUD) (Acute 05/02/13) Contraception (Acute 09/11/16) Chronic migraine (Acute 01/16/14) Abnormal auditory perception (Acute 12/28/13) URI, acute (Acute) Medical History (Updated 11/03/23 @ 15:28 by JONATHAN Rojas) Anxiety GERD (gastroesophageal reflux disease) Depression Migraine Diabetes Surgical History section 2011 Diagnostic Laproscopy 2009 R ovarian cyst Cholecystectomy 2002 Appendectomy 2009 Family History (Updated 06/30/23 @ 13:49 by JONATHAN Begum) Father Hypertension Non-Hodgkin lymphoma in remission Colon cancer Mother Colon cancer Social History (Updated 06/30/23 @ 13:50 by JONATHAN Begum) Smoking/Tobacco Use Status: Never Smoking risk assessment performed?: Yes Alcohol Intake: current Alcohol Intake frequency: a few times a month Drug use: Rarely Substance use type: marijuana Adopted: No Household members: children Housing: apartment Current gender identity: female What type of physical activity do you participate in: normal ROM and activity Do you feel safe at home: Yes Do you feel safe in your relationship?: Yes Sign Out Sign Out Data: Sign Out Comment: Patient has R Lisfranc injury- awaiting [facility] consult with ortho- Possible transfer vs definitive plan for when patient is to follow-up for scheduled surgery. Safety issues of stairs at home, baseline neuropathy, possible Charcot's foot issues with minor L injury just weeks prior. Last updated by Jose Dixon PA at 11/03/23 15:43
--- NOTE | 2023-11-03 09:45 | DI.RAD_ITS ---
Exam(s) XR ANKLE RT COMPLETE EXAM: XR ANKLE RT COMPLETE CLINICAL HISTORY: bilateral foot/ankle pain. TECHNIQUE: 2D digital imaging was performed. COMPARISON: No exams were available for comparison FINDINGS: 3 views There is soft tissue swelling around both sides of the ankle. No evidence of malleolar fractures nor widening of the ankle mortise. However, the significant findings are in the distal aspect of the fi eld of view here where there appears to be evidence of significant Lisfranc injury. See separate demetria t report. IMPRESSION: Lisfranc injury. DATA REPOSITORY: RADIATION DOSE DELIVERED:
--- NOTE | 2023-11-03 09:45 | DI.RAD_ITS ---
Exam(s) XR FOOT RT COMPLETE EXAM: XR FOOT RT COMPLETE CLINICAL HISTORY: bilateral foot/ankle pain. TECHNIQUE: 2D digital imaging was performed. COMPARISON: No exams were available for comparison FINDINGS: 3 views There is diastasis of the Lisfranc joint consistent with significant injury, despite absence of obvio us fracture lines in the midfoot/metatarsals. Dorsal soft tissue swelling at this level is noted.. IMPRESSION: Significant Lisfranc injury. Orthopedic consultation recommended. DATA REPOSITORY: RADIATION DOSE DELIVERED:
--- NOTE | 2023-11-03 09:45 | DI.RAD_ITS ---
Exam(s) XR FOOT LT COMPLETE EXAM: XR FOOT LT COMPLETE CLINICAL HISTORY: bilateral foot/ankle pain. TECHNIQUE: 2D digital imaging was performed. COMPARISON: CR XR FOOT RT COMPLETE from 11/03/2023 FINDINGS: 3 views No evidence of acute fracture or diastasis of the Lisfranc joint. No metatarsal fractures evident. On the medial aspect of the foot there is an osteophytic density at the level of navicular tuberosity which is probably an ununited apophysis at this level. Pallor and are arch is maintained. IMPRESSION: No acute fractures evident in the left foot. No evidence of obvious Lisfranc injury, as is seen on t he opposite-right side. DATA REPOSITORY: RADIATION DOSE DELIVERED:
--- NOTE | 2023-11-03 09:55 | DI.RAD_ITS ---
Exam(s) XR ANKLE LT COMPLETE EXAM: XR ANKLE LT COMPLETE CLINICAL HISTORY: bilateral foot/ankle pain. TECHNIQUE: 2D digital imaging was performed. COMPARISON: CR XR ANKLE RT COMPLETE from 11/03/2023 FINDINGS: 3 views No evidence of acute fracture but there is slight tilting of the mortise noted. Talar dome appears i ntact. No evidence of calcaneus fracture. IMPRESSION: Slight tilting/rotation of the ankle mortise. Mild soft tissue swelling. If clinically indicated follow-up CT scan can be performed. DATA REPOSITORY: RADIATION DOSE DELIVERED:
--- NOTE | 2023-11-03 11:00 | DI.CT_ITS ---
Exam(s) CT LOWER EXTREMITY LT WO EXAM: CT LOWER EXTREMITY LT WO CLINICAL HISTORY: tilting of ankle mortise on XR. TECHNIQUE: Imaging Protocol: Axial computed tomography images with coronal and sagittal reformatted images were created and reviewed. CONTRAST MATERIAL: Intravenous: None COMPARISON: No exams were available for comparison FINDINGS: OSSEOUS: There is no evidence of fracture or dislocation. Talar dome appears unremarkable . Bony al ignment is satisfactory. The mid-foot is well maintained. No cellulitic or osteomyelitic changes are identified. There is no evidence of joint space narrowing or cystic degeneration seen. No lytic or s clerotic lesions are identified. Incidentally noted is an ununited apophysis or sesamoid at navicular tuberosity level. There is not related to acute trauma IMPRESSION: No acute fracture evident. RADIATION DOSE DELIVERED: 198.26mGy.cm Total DLP DATA REPOSITORY: All CT scans at this facility are submitted to the National Radiology Data Registry (NRDR) Dose Index Registry (DIR) with the [employer] (A[employer]). RADIATION OPTIMIZATION: All CT scans at this facility use at least one of these dose optimization te chniques: automated exposure control; mA and/or kV adjustment per patient size (includes targeted exa ms where dose is matched to clinical indication); or iterative reconstruction.
--- NOTE | 2023-11-03 12:29 | W.ORTHOCONSU ---
Date of service: 11/03/23 Time of Service: 16:21 Assessment and Plan Assessment and plan (1) Lisfranc dislocation: Status: Acute Assessment and plan: 42-year-old female with right foot Lisfranc injury Reportedly minimally traumatic injury last night stubbing toe. Significant Lisfranc dislocation on x-rays. High risk given diabetic neuropathy with last hemoglobin A1c almost 10. Not an injury that can be treated with surgery here. Reviewed with [facility] trauma orthopedic surgeon who recommends outpatient referral to foot and ankle surgery at [facility]. Splint, nonweightbearing, strict elevation, and DVT prophylaxis. Communicated with emergency room. CT scan per definitively treating facility. [facility] All Active Problems (Updated 11/03/23 @ 16:09 by JONATHAN Rogers) Lisfranc dislocation (Acute) Mixed hyperlipidemia (Acute) Neuropathy of right foot (Acute) Patellofemoral syndrome, right (Acute) Polycystic ovaries (Acute 05/02/13) Migraine headache (Acute 01/16/14) Medication overuse headache (Acute 01/16/14) Imbalance (Acute 12/28/13) Diabetes mellitus (Acute 05/02/13) Encounter for routine checking of intrauterine contraceptive device (IUD) (Acute 05/02/13) Contraception (Acute 09/11/16) Chronic migraine (Acute 01/16/14) Abnormal auditory perception (Acute 12/28/13) URI, acute (Acute) Medical History (Updated 11/03/23 @ 16:09 by JONATHAN Rogers) Anxiety GERD (gastroesophageal reflux disease) Depression Migraine Diabetes Surgical History section 2011 Diagnostic Laproscopy 2009 R ovarian cyst Cholecystectomy 2002 Appendectomy 2010 Family History (Updated 06/30/23 @ 13:49 by JONATHAN Begum) Father Hypertension Non-Hodgkin lymphoma in remission Colon cancer Mother Colon cancer Social History (Updated 06/30/23 @ 13:50 by JONATHAN Begum) Smoking/Tobacco Use Status: Never Smoking risk assessment performed?: Yes Alcohol Intake: current Alcohol Intake frequency: a few times a month Drug use: Rarely Substance use type: marijuana Adopted: No Household members: children Housing: apartment Current gender identity: female What type of physical activity do you participate in: normal ROM and activity Do you feel safe at home: Yes Do you feel safe in your relationship?: Yes Results Last Vital Signs Temp 97.0 F L 11/03/23 09:19 Pulse 104 H 11/03/23 09:19 Resp 12 11/03/23 09:19 BP 135/97 H 11/03/23 09:19 Pulse Ox 97 11/03/23 09:19
[2023-11-03 14:12] VITALS: BP 126/80; PULSE 89; RESP 17; TEMP 37.1; O2SAT 96
--- NOTE | 2023-11-03 15:59 | W.EDPROG ---
Date of service: 11/03/23 Time of Service: 15:59 Medical Decision Making Patient care transitioned to myself from JONATHAN Osullivan. Please see his initial note regarding history, presentation and evaluation thus far. In brief, patient is a pleasant 42-year-old female with past medical history significant for diabetes. Presenting today after injuring her foot last night. Diagnosed with a Lisfranc fracture. Consult with orthopedics is pending at [facility] as this is something that needs to be managed there. Consulted with [facility] orthpedics. They advised that they would like a CT scan of the patient's right foot for further evaluation as they are questioning if this could be chronic injury instead of more acute traumatic insult. They advised that surgical treatment, while potentially warranted for both, would be vastly different. They also recommended starting the patient on aspirin twice daily for DVT prophylaxis. They agreed with the posterior slab splint splint that is already been applied. Advised that they do not need to see the patient today, they will call to schedule outpatient follow-up. I discussed these plans with the patient who is in agreement. Advised patient will be seen in clinic in the next 1 to 2 weeks to discuss surgical options. CT scan was obtained as per recommendations. Patient was transitioned to walker as she was struggling with crutches and found this much more beneficial and more likely to stay with this at home. Images were sent to [facility] for surgical preparation and continued management. Return precautions were discussed with the patient. All of her questions and concerns were addressed and she is in agreement this plan. Patient also advised to begin twice daily aspirin as was recommended by orthopedics for DVT prevention. Quality:SDOH Health Related Social Needs: No Data to Display Discharge Plan Disposition Patient Disposition: Home Condition: Good Discharge Details Clinical Impression: Lisfranc dislocation, Diabetes mellitus Primary Care Provider: Ila Barton ED Provider: Jose Dixon Home Meds and New Rx's Prescriptions: Continued sertraline 100 mg tablet 200 mg PO DAILY ibuprofen 800 mg tablet 800 mg PO TID PRNQty: 90 liraglutide 0.6 mg/0.1 mL (18 mg/3 mL) pen injector 1.8 mg subcut DAILY insulin glargine [Lantus Solostar U-100 Insulin] 100 unit/mL (3 mL) insulin pen 80 unit subcut HS Rx Instructions: increase by 5 units every week until fasting glucose <140 insulin lispro [Humalog U-100 Insulin] 100 UNIT/ML solution 0 - 12 units SQ AC metformin 500 mg tablet extended release 24 hr 1,000 mg PO BID Patient Comments: Take 2 tablet by mouth twice a day with meals Discharge Instructions Instructions: Crutch Instructions (ED), Foot Fracture in Adults (ED) Additional Instructions: Imaging is concerning for acute versus chronic injury of your foot. Please continue with splint until reevaluated by orthopedics. Please encourage rest, ice, elevation. Tylenol as needed for discomfort. Orthopedics from [facility] will call you in the next few days to schedule outpatient follow-up appointment in their clinic. If you do not hear from them, please call [facility] at [phone]. Please continue to remain nonweightbearing with crutches. I also recommend you beginning 1 baby aspirin, 81 mg, twice daily to help prevent blood clots until you are seen by them. If you develop any new or worsening symptoms please seek care urgently once again. Stand Alone Forms: Work Release Referrals: Ila Barton [Primary Care Provider] - Discharge Data Discharge Date/Time-TO BE ENTERED AT DEPARTURE: 11/03/23 16:55
--- NOTE | 2023-11-03 16:32 | DI.CT_ITS ---
Exam(s) CT LOWER EXTREMITY RT WO EXAM: CT LOWER EXTREMITY RT WO CLINICAL HISTORY: trauma, lis franc. TECHNIQUE: Imaging Protocol: Axial computed tomography images with coronal and sagittal reformatted images were created and reviewed. CONTRAST MATERIAL: Intravenous: Omnipaque 350 Contrast volume:structured data in ml Contrast route:IV - COMPARISON: CR XR FOOT RT COMPLETE from 11/03/[address] LOWER EXTREMITY LT WO from 11/03/2023 FINDINGS: Bones: There are tiny fracture fragment seen at the dorsal aspect of the 1st cuneiform distally and m edially, at the 1st tarsal metatarsal joint. Additional tiny fracture fragments are also seen at the dorsal, distal aspect of the 2nd and 3rd cuneiforms. No cellulitic or osteomyelitic changes are identified. No lytic or sclerotic lesions are identified. Joints: The tarsal metatarsal alignment now appears normal.. Soft Tissues: Edema, greater dorsally. IMPRESSION: The tarsal metatarsal alignment now appears normal. Tiny fracture fragments are noted at the distal common dorsal aspects of the 1st through 3rd cuneiforms. RADIATION DOSE DELIVERED: 213.22mGy.cm Total DLP DATA REPOSITORY: All CT scans at this facility are submitted to the National Radiology Data Registry (NRDR) Dose Index Registry (DIR) with the [employer] ([employer]). RADIATION OPTIMIZATION: All CT scans at this facility use at least one of these dose optimization te chniques: automated exposure control; mA and/or kV adjustment per patient size (includes targeted exa ms where dose is matched to clinical indication); or iterative reconstruction.
== END 2023-11-03 16:55 | disposition home or self-care (01) ==
PROVIDERS: Emergency Provider Physician Assistant; PCP Nurse Practitioner Family
DX: S93.324A Dislocation of tarsometatarsal joint of right foot, initial encounter (principal); E11.40 Type 2 diabetes mellitus with diabetic neuropathy, unspecified; Z79.4 Long term (current) use of insulin; Z79.84 Long term (current) use of oral hypoglycemic drugs; W22.09XA Striking against other stationary object, initial encounter; Y93.01 Activity, walking, marching and hiking; Y92.018 Other place in single-family (private) house as the place of occurrence of the external cause
CPT/HCPCS: 00123; 29515; 82962; 99285; 73610; 73630; 73700; 99284

== ENCOUNTER 2024-01-24 14:03 | Outpatient (CLI) | payer MEDICAID, SELFPAY ==
--- NOTE | 2024-01-24 10:35 | DI.RAD_ITS ---
Exam(s) XR FOOT RT COMPLETE EXAM: XR FOOT RT COMPLETE CLINICAL HISTORY: evaluate Charcot joint progress, M14.679. TECHNIQUE: 2D digital imaging was performed of the right foot. Three images were obtained. AP, obl ique and lateral views were obtained. COMPARISON: CR XR FOOT RT COMPLETE from 11/03/2023 FINDINGS: BONES: There are now calcific densities at the dorsum of the foot overlying the tarsal bones suggesti ng interval fragmentation and progression of the neuropathic foot. On the lateral view, there is edi dence of further dislocation of the tarsometatarsal joints since the prior examination. There is an enthesophyte at the posterior calcaneus. JOINTS: Worsening tarsometatarsal joint dislocation. SOFT TISSUE: Normal. IMPRESSION: Worsening fragmentation and dislocation seen at the tarsometatarsal joints since 11/03/2023. DATA REPOSITORY: RADIATION DOSE DELIVERED:
== END 2024-01-24 14:23 ==
PROVIDERS: PCP Nurse Practitioner Family; Visit Provider Podiatrist
DX: M14.671 Charcot's joint, right ankle and foot
CPT/HCPCS: 73630

== ENCOUNTER 2024-02-07 02:11 | Outpatient (CLI) | payer MEDICAID, SELFPAY ==
--- NOTE | 2024-02-07 07:45 | DI.RAD_ITS ---
Exam(s) XR FOOT RT COMPLETE EXAM: XR FOOT RT COMPLETE CLINICAL HISTORY: monitor for changes,charcot joint rt foot, neuropathy,m14.671,G57.91. TECHNIQUE: 2D digital imaging was performed. COMPARISON: CT CT LOWER EXTREMITY RT WO from 11/03/2023 CR XR FOOT RT COMPLETE from 11/03/2023 CR XR FOOT RT COMPLETE from 01/24/2024 FINDINGS: 3 views Again noted is disruption of the Lisfranc joint which appears unchanged from 01/24/2024 but worse dangelo n 11/03/2023. On the AP view there is approximately 12 mm offset between the medial cortices of the 2nd metatarsal and middle cuneiform. This offset was approximately 6 mm on 11/03/2023. Abnormal calcific densities are again noted on the dorsal aspect of the foot implying osseous fragmen tation and there is midfoot collapse again evident. IMPRESSION: Severe Lisfranc joint disruption with significant progression when compared to plain films and CT sca n of 11/03/2023. DATA REPOSITORY: RADIATION DOSE DELIVERED:
== END 2024-02-07 02:31 ==
LOC: DI 02:11
PROVIDERS: PCP Nurse Practitioner Family; Visit Provider Podiatrist
DX: M14.671 Charcot's joint, right ankle and foot
CPT/HCPCS: 73630

== ENCOUNTER 2024-02-18 15:18 | Outpatient (REF) | payer MEDICAID, SELFPAY ==
[2024-02-18 18:43] LABS: ALT 24 U/L (14-59); AST 21 U/L (15-37); Albumin 3.4 g/dL (3.4-5.0); Alkaline Phosphatase 111 U/L (46-116); Anion Gap 7.2 mmol/L (3-11); BUN 11 mg/dL (7-18); Bilirubin, Total 0.45 mg/dL (0.2-1.0); CO2 27.8 mmol/L (21.0-32.0); CREATININE 0.9 mg/dL (0.55-1.02); Calcium 9.1 mg/dL (8.5-10.1); Calculated LDL 161 mg/dL (<100); Chloride 105 mmol/L (98-107); Cholesterol 249 mg/dL (<200); Estimated GFR 81.35 (mL/min/1.73m2); Glucose 165 mg/dL (74-106); HDL Cholesterol 41 mg/dL (40-60); Potassium 4.2 mmol/L (3.5-5.1); Sodium 140 mmol/L (136-145); Total Protein 7.5 g/dL (6.4-8.2); Triglyceride 236 mg/dL (<150)
[2024-02-21 09:33] LABS: HIV-1/2 Ag & Ab Screen Negative (Negative)
[2024-02-21 09:39] LABS: Hepatitis C Ab w Rflx HCV PCR Negative (Negative)
== END 2024-02-18 15:19 | disposition home or self-care (01) ==
LOC: NCHCN 15:18
PROVIDERS: PCP Nurse Practitioner Family; Visit Provider Nurse Practitioner Family
DX: Z00.00 Encounter for general adult medical examination without abnormal findings (principal); E78.2 Mixed hyperlipidemia; E11.9 Type 2 diabetes mellitus without complications
CPT/HCPCS: 80053; 80061; 86803; 87389

== ENCOUNTER 2024-03-01 01:47 | Outpatient (CLI) | payer MEDICAID, SELFPAY ==
--- NOTE | 2024-03-01 06:30 | DI.RAD_ITS ---
Exam(s) XR FOOT RT COMPLETE EXAM: XR FOOT RT COMPLETE CLINICAL HISTORY: Eval for changes,f/u charcot joint,m14.671. TECHNIQUE: 2D digital imaging was performed. Three views. COMPARISON: CR XR FOOT RT COMPLETE from 02/07/2024 FINDINGS: BONES: No acute fracture is present. No bony destructive lesion is seen. JOINTS: Stable appearance of disruption of the Lisfranc joint. Severe collapse of the plantar arch. Multiple bony fragments again noted at the dorsal tarsal metatarsal region. SOFT TISSUE: Dorsal soft tissue swelling. IMPRESSION: Stable appearance of Charcot foot. DATA REPOSITORY: RADIATION DOSE DELIVERED:
== END 2024-03-01 02:07 ==
LOC: DI 01:47
PROVIDERS: PCP Nurse Practitioner Family; Visit Provider Podiatrist
DX: M14.671 Charcot's joint, right ankle and foot (principal)
CPT/HCPCS: 73630

== ENCOUNTER 2024-03-08 01:07 | Outpatient (CLI) | payer MEDICAID, SELFPAY ==
--- NOTE | 2024-03-08 | DI.MAMMO_ITS ---
Exam(s) MAMMO SCREENING EXAM: MAMMO SCREENING CLINICAL HISTORY: Screening, Z12.39 TECHNIQUE: Bilateral full field digital CC and MLO mammographic images were obtained with 3D tomosyn thesis and utilizing computer aided detection (CAD). COMPARISON: This is a baseline examination. FINDINGS: Masses/Architectural Distortion: None seen. Microcalcifications: No suspicious pleomorphic-type are seen. Skin Thickening/Nipple Retraction: None. IMPRESSION: 1. No evidence for malignancy. 2. Unless there is more urgent need, screening mammography is recommended, as per [employer] guidelines. BI-RADS Category 1 - Negative Breast Density - Category B - Scattered areas of fibroglandular density Breast density category C or D implies that the patient has dense breast tissue. Dense breast tissue is very common and is not abnormal but dense breast tissue can make it harder to find cancer on a ma mmogram. Also, dense breast tissue may increase their breast cancer risk. This information about the result of the mammogram report was provided to the patient to raise their awareness. Use this report when you speak with the patient about their risks for breast cancer, which includes their family hist ory. At that time, you may recommend for more screening tests (Ultrasound or MRI) as they might be us eful based on their risk. A negative radiographic report should not delay biopsy if a dominant or clinically suspicious mass is present. Up to ten percent of cancers are not identified on mammography. A negative report may reinforce clinical impression. Adenosis and dense breasts may obscure an underlying neoplasm. False positive reports average 6 to 10%. Patient will receive a letter notifying them of these results.
== END 2024-03-08 01:27 ==
LOC: DI 01:07
PROVIDERS: PCP Nurse Practitioner Family; Visit Provider Nurse Practitioner Family
DX: Z12.31 Encounter for screening mammogram for malignant neoplasm of breast (principal)
CPT/HCPCS: 77063; 77067

== ENCOUNTER 2024-04-03 00:40 | Outpatient (CLI) | payer MEDICAID, SELFPAY ==
--- NOTE | 2024-04-03 06:15 | DI.RAD_ITS ---
Exam(s) XR FOOT RT COMPLETE EXAM: XR FOOT RT COMPLETE CLINICAL HISTORY: Progress,CHARCOT JOINT RT FOOT, M14.671. TECHNIQUE: 2D digital imaging was performed. COMPARISON: CR XR FOOT RT COMPLETE from 03/01/2024 FINDINGS: 3 views Again noted is significant disruption of the main Lisfranc joint with fracture fragment seen dorsally , as previously evident. The lateral 3 tarsometatarsal joints appears satisfactory. Midfoot collaps e again noted. IMPRESSION: Abnormal findings as above with minimal if any significant change compared to 03/01/2024. Disrupted main Lisfranc joint and midfoot collapse. DATA REPOSITORY: RADIATION DOSE DELIVERED:
== END 2024-04-03 01:00 ==
LOC: DI 00:40
PROVIDERS: PCP Nurse Practitioner Family; Visit Provider Podiatrist
DX: M14.671 Charcot's joint, right ankle and foot (principal)
CPT/HCPCS: 73630

== ENCOUNTER 2024-05-30 01:26 | Outpatient (CLI) | payer MEDICAID, SELFPAY ==
--- NOTE | 2024-05-30 08:23 | DI.RAD_ITS ---
Exam(s) XR FOOT RT COMPLETE EXAM: XR FOOT RT COMPLETE CLINICAL HISTORY: rt foot pain,charcot joint,m14.671. TECHNIQUE: 2D digital imaging was performed of the right foot. Three images were obtained. AP, obl ique and lateral views were obtained. COMPARISON: CR XR FOOT RT COMPLETE from 04/03/2024 FINDINGS: BONES: No acute fracture is present. No bony destructive lesion is seen. There is an enthesophyte at the posterior calcaneus. JOINTS: There has been no change in the disruption of the tarsometatarsal joints and bony fragmentati on noted at the dorsal aspect of the TMT joints. SOFT TISSUE: Normal. IMPRESSION: No significant change in alignment of the midfoot compared to 04/03/2024. DATA REPOSITORY: RADIATION DOSE DELIVERED:
== END 2024-05-30 01:46 ==
LOC: DI 01:26
PROVIDERS: PCP Nurse Practitioner Family; Visit Provider Podiatrist
DX: M14.671 Charcot's joint, right ankle and foot (principal)
CPT/HCPCS: 73630

== ENCOUNTER 2024-09-08 13:23 | Outpatient (REF) | payer MEDICAID, SELFPAY ==
[2024-09-08 21:26] LABS: Abs Immature Grans 0.03 10^3/uL (0.0-0.06); Absolute Basophil Count 0.05 10^3/uL (0.0-0.2); Absolute Eosinophil Count 0.13 10^3/uL (0.0-0.7); Absolute Lymphocyte Count 2.96 10^3/uL (1.2-3.4); Absolute Neutrophil Count 6.22 10^3/uL (1.2-6.7); Basophils % 0.5 %; Eosinophils % 1.3 %; HCT 42.5 % (36.0-46.0); HGB 14.1 g/dL (11.2-15.7); Immature Grans % 0.3 %; Lymphocytes % 29.6 %; MCH 28.3 pg (27.0-33.0); MCHC 33.2 % (32.0-36.0); MCV 85 fL (80-95); MPV 11.2 fL (8.0-11.0); Neutrophils % 62.3 %; Platelet Count 249 10^3/uL (130-400); RBC 4.98 10^6/uL (3.93-5.22); RDW 12.3 % (11.7-14.6); RDW-SD 38.1 fL; WBC 9.99 10^3/uL (4.4-10.8)
[2024-09-08 21:36] LABS: ALT 26 U/L (14-59); AST 16 U/L (15-37); Albumin 3.3 g/dL (3.4-5.0); Alkaline Phosphatase 96 U/L (46-116); BUN 10 mg/dL (7-18); Bilirubin, Total 0.4 mg/dL (0.2-1.0); CREATININE 0.8 mg/dL (0.55-1.02); Calcium 9.2 mg/dL (8.5-10.1); Chloride 106 mmol/L (98-107); Glucose 160 mg/dL (74-106); Potassium 4.1 mmol/L (3.5-5.1); Sodium 141 mmol/L (136-145); Total Protein 7.4 g/dL (6.4-8.2)
[2024-09-08 21:54] LABS: COMMENT (LAB VIEW ONLY) 43.03 mg/dL; Microalb ug/mg Crea 8.6 ug/mg Cr
== END 2024-09-08 13:24 | disposition home or self-care (01) ==
LOC: NCHCN 13:23
PROVIDERS: PCP Nurse Practitioner Family; Visit Provider Nurse Practitioner Family
DX: E11.311 Type 2 diabetes mellitus with unspecified diabetic retinopathy with macular edema (principal)
CPT/HCPCS: 80053; 82043; 82570; 85025

== ENCOUNTER 2025-02-02 18:18 | Outpatient (REF) | payer MEDICAID, SELFPAY ==
[2025-02-05 12:09] LABS: Chlamydia Result Negative (Negative); GC Result Negative (Negative)
== END 2025-02-02 18:19 | disposition home or self-care (01) ==
LOC: LBN 18:18
PROVIDERS: PCP Nurse Practitioner Family; Visit Provider Nurse Practitioner Family
DX: Z11.3 Encounter for screening for infections with a predominantly sexual mode of transmission (principal)
CPT/HCPCS: 87491; 87591; 87480; 87510; 87660

== ENCOUNTER 2025-03-14 14:06 | Outpatient (REF) | payer MEDICAID, SELFPAY ==
[2025-03-14 16:24] LABS: Hemoglobin A1C 8.7 % (<5.7)
== END 2025-03-14 14:07 | disposition home or self-care (01) ==
LOC: NCHCN 14:06
PROVIDERS: PCP Nurse Practitioner Family; Visit Provider Family Medicine
DX: E11.9 Type 2 diabetes mellitus without complications (principal)
CPT/HCPCS: 83036